=== PATIENT | female | born 1940 | race Caucasian/White ===

== ENCOUNTER 2017-04-28 14:44 | Outpatient (CLI) | payer MEDICARE ==
[2017-04-28 15:17] LABS: #Basophils 0.2 thou/uL (0.0-0.2); #Eosinphils 0.2 thou/uL (0.0-0.7); #Lymphocytes 3.1 thou/uL (1.20-3.40); #Monocytes 0.6 thou/uL (0.11-0.59); #Neutrophils 7.6 thou/uL (1.40-6.50); %Basophils 1.9 % (0.0-1.0); %Eosinophils 1.7 % (0.0-10.0); %Lymphocytes 26.3 % (21.0-51.0); %Monocytes 5.2 % (0.0-10.0); Hematocrit 37.1 % (36.0-47.0); Mean Platelet Volume 6.2 fL (7.4-10.4); Red Blood Cell (RBC) Count 4.77 mill/uL (4.20-5.40); White Blood Cell (WBC) Count 11.7 thou/uL (4.8-10.8)
[2017-04-28 15:20] LABS: Bilirubin Negative (Negative); Blood, Urine Negative (Negative); Glucose, Urine (Dipstick) Negative (Negative); Ketone, Urine Negative (Negative); Nitrite Positive (Negative); Protein, Urine (Dipstick) Negative (Neg-Trace); Urobilinogen 0.2 mg/dL (0.2-1.0)
[2017-04-28 15:21] LABS: ALT (SGPT) 18 U/L (8-55); AST (SGOT) 22 U/L (5-34); Alkaline Phosphatase 83 U/L (40-150); Anion Gap 17 mmol/L (10-20); BUN (Urea Nitrogen) 25 mg/dL (9.8-20.1); Bilirubin, Total 0.5 mg/dL (0.2-1.2); Calc. Creatinine Clearance 0 mL/min (70-130); Calcium 9.9 mg/dL (7.8-10.44); Carbon Dioxide 23 mmol/L (23-31); Chloride 97 mmol/L (98-107); Estimated GFR-MDRD 64
[2017-04-28 15:27] LABS: Bacteria/HPF 4+ HPF (None Seen); RBC/HPF 0-3 HPF (0-3)
--- NOTE | 2017-04-28 15:49 | RAD ---
CHEST TWO VIEWS: History: Recent weight loss. Comparison: None. FINDINGS: Chest two views. Atherosclerosis of the aorta. Normal cardiac silhouette. Pulmonary vessels and hilum are normal. Costophrenic angles are clear. Lungs are hyperinflated. Questionable nodule in the left midlung adjacent to the left heart border. Additional nodule may be present along the medial left cos tophrenic angle. No pneumothorax or osseous abnormality. Old right rib fractures suspected. Old left clavicle fracture is noted. IMPRESSION: 1. Possible left lung nodule. Better interrogation with CT is recommended. 2. Hyperinflation. 3. Atherosclerosis. Code T POS: OFF
== END 2017-04-28 14:45 | disposition home or self-care (01) ==
LOC: SCSRAD 14:44
PROVIDERS: ATTEND Family Medicine
DX: R63.4 Abnormal weight loss (principal); R97.8 Other abnormal tumor markers; I25.10 Atherosclerotic heart disease of native coronary artery without angina pectoris; J98.4 Other disorders of lung
CPT/HCPCS: 36415; 71020; 80053; 81001; 82378; 84443; 85025; 86304

== ENCOUNTER 2017-05-02 12:11 | Outpatient (CLI) | payer MEDICARE ==
--- NOTE | 2017-05-02 16:41 | CT ---
ABDOMEN CT WITH CONTRAST PELVIC CT WITH CONTRAST: History: Abnormal labs. Ovarian cancer. Comparison: None. Technique: An abdomen and pelvic CT are performed with IV and oral contrast. Coronal reformatted imag es are submitted for interpretation. FINDINGS: Abdomen CT: Chronic changes in the lung bases. Normal heart size. No significant pericardial fluid. The descendin g thoracic aorta and abdominal aorta demonstrate atherosclerosis. No periaortic fat stranding. No periportal or retrocrural lymphadenopathy. There is nodularity in the gastrohepatic ligament, worr isome for possible metastases. Gallbladder is contracted. There is evidence of a gallstone. There is a small amount of nonspecific perihepatic and perisplenic fluid. No abnormal enhancing masses in the liver or spleen. Pancreas is unremarkable. Adrenal glands are unremarkable. Symmetric enhancement of the kidneys. No obstructive uropathy, bilat erally. Abnormal soft tissue density in the left upper quadrant mesentery, measuring 2.9 x 7.2 cm, suspicious for omental seeding. There is fluid in the adjacent mesentery. There is gastric mucosal edema, nonspecific. Duodenum and small bowel loops are unremarkable. Ileocec al junction is normal. There is fecal material in a nondistended, nondilated colon. There is left col on diverticulosis. There is an abrupt caliber change in the midsigmoid colon. Colonic neoplasm cannot be excluded. The mid to distal sigmoid colon also have diverticula. Obvious diverticulitis is not ap preciated. Pelvic CT: Uterus and adnexal structures are grossly unremarkable. No obvious large ovarian mass. Urinary bladde r is unremarkable. No pelvic mass, lymphadenopathy, free air or free fluid. No lytic or blastic lesions in the osseous structures. IMPRESSION: 1. Mucosal edema of the stomach. Correlate for gastritis versus gastric neoplasm. 2. Abnormal appearance of the sigmoid colon which may be due to inadequate distention or remote diver ticulitis. A neoplasm cannot be excluded. Colonoscopy is recommended. 3. Omental seeding in the left upper quadrant as well as nodularity to the gastrohepatic ligament, wo rrisome for metastases. 4. [facility] oncology and general surgical consultations are recommended. POS: [facility]
[2017-05-02] MEDS ORDERED: Iopamidol 370 76% 100 ML VIAL ONE (17:06)
== END 2017-05-02 12:12 | disposition home or self-care (01) ==
LOC: CT 12:11
PROVIDERS: ATTEND Family Medicine
DX: R79.9 Abnormal finding of blood chemistry, unspecified (principal); R60.0 Localized edema; Z92.89 Personal history of other medical treatment
CPT/HCPCS: 74177

== ENCOUNTER 2017-06-16 08:26 | Day surgery (SDC) | payer MEDICARE ==
[2017-06-15 11:40] VITALS: BMI 21.2
[2017-06-16] MEDS ORDERED: Lidocaine 2% w/Epinephrine 1:200K 20 ML VIAL ONE (09:49)
[2017-06-16] MEDS ORDERED: Bupivacaine PF 0.5% 30 ML VIAL ONE (09:49)
[2017-06-16] MEDS ORDERED: Levofloxacin 500 mg/D5W 100 ml Premix Bag ONE (09:59)
[2017-06-16] MEDS ORDERED: Fentanyl 100 MCG/2 ML VIAL ONE (09:59)
--- NOTE | 2017-06-16 13:33 | RAD ---
SINGLE VIEW CHEST: Date: 06/16/17 COMPARISON: 04/28/17. HISTORY: Chest pain and shortness of breath. MediPort placement. Evaluate for pneumothorax. FINDINGS: Single view of the chest shows normal sized cardiomediastinal silhouette. There is a right IJ MediPor t with its tip in the superior vena cava. No pneumothorax is seen. There is blunting of the left cost ophrenic angle which may represent a small pleural effusion. IMPRESSION: 1. Status post MediPort placement without evidence of complication. 2. Small left pleural effusion. POS: [facility]
[2017-06-16] MEDS ORDERED: Lidocaine 1% PF 5 ML VIAL ONE (14:28)
[2017-06-16] MEDS ORDERED: PROPOFOL 200 MG/20 ML VIAL ONE (14:28)
--- NOTE | 2017-06-17 12:21 | OP ---
DATE OF PROCEDURE: 06/16/2017 PREOPERATIVE DIAGNOSES: Ovarian cancer and venous insufficiency. POSTOPERATIVE DIAGNOSES: Ovarian cancer and venous insufficiency. PROCEDURE: Tunneled central line subcutaneous port (MediPort), CT injectable. SURGEON: Oscar Mendoza M.D. ANESTHESIA: TIVA, local. ESTIMATED BLOOD LOSS: Minimal. COMPLICATIONS: None. SPECIMEN: None. TECHNIQUE: The patient was taken to the operating room and placed supine on the table. After sedati on was obtained, bilateral neck and chest were prepped and draped in a sterile fashion. Local anesth etic infiltrated over the right internal jugular vein. Intrajugular vein cannulated using a 22-gauge finder needle followed by a Seldinger needle. Wire was passed into the superior vena cava under flu oroscopic guidance. A small sheridan was made at the wire entrance site. A separate 3-cm incision was m aleah in the right upper chest. Subcutaneous pocket made below the lower incision. Tubing for the Med iPort tunneled from the inferior to superior incision. Introducer sheath was placed over the wire in to the superior vena cava under fluoroscopic guidance. The dilator and wire were removed and the end of the catheter was threaded into the sheath as the sheath was peeled away. The tip of the catheter was at the atrial caval junction. MediPort tubing was cut to fit the MediPort at the lower incision and connected to the MediPort. The MediPort sewn to the chest wall in the subcutaneous pocket using Prolene suture. The MediPort flushes and draws blood without difficulty. It is flushed with hepari n flush. The wounds are irrigated and closed using 3-0 Vicryl, 4-0 Monocryl, and Dermabond. The Med iPort was left accessed with the access needle for chemotherapy on the same day. The patient was en route to recovery in stable condition. All instrument counts, needle counts, and lap counts were cor rect.
== END 2017-06-16 11:54 | disposition home or self-care (01) ==
LOC: SDC 08:26
PROVIDERS: ATTEND Surgery
PROC: 02HV33Z Insertion of Infusion Device into Superior Vena Cava, Percutaneous Approach (ICD-10-PCS; principal; 2017-06-16)
DX: C56.9 Malignant neoplasm of unspecified ovary (principal); I10 Essential (primary) hypertension; J43.9 Emphysema, unspecified; F17.210 Nicotine dependence, cigarettes, uncomplicated; F10.11 Alcohol abuse, in remission; K21.9 Gastro-esophageal reflux disease without esophagitis; M19.90 Unspecified osteoarthritis, unspecified site; Z79.899 Other long term (current) drug therapy; Z88.5 Allergy status to narcotic agent; Z88.0 Allergy status to penicillin; Z98.890 Other specified postprocedural states
CPT/HCPCS: 36561; 71045; C1788; J1642; J1956; J2001; J2704; J3010; S0020

== ENCOUNTER 2017-08-10 09:05 | Outpatient (CLI) | payer MEDICARE ==
[2017-08-10] MEDS ORDERED: Iopamidol 370 76% 100 ML VIAL ONE (12:48)
--- NOTE | 2017-08-10 13:27 | CT ---
CT ABDOMEN AND PELVIS WITH IV CONTRAST: INDICATIONS: History of ovarian cancer with omental caking. COMPARISON: 05/02/2017 FINDINGS: Since the comparison examination, the prominent nodularity involving the left upper aspect of the ome ntum has slightly decreased in prominence, now measuring 6.3 x 2.3 x 9.3 cm, where it previously ramana ured 7.2 x 2.9 x 10.2 cm. The nodularity seen within the Cui pouch has also decreased in promin ence. There are persistent and enlarged lymph nodes within the gastrohepatic ligament, measuring 1.2 cm, on image 22 of series 2. The slight nodularity seen along the anterior margin of the pancreatic body, likely related to retroperitoneal studding, is stable. There is a small hiatal hernia. The spleen is normal appearing. The adrenal glands appear within normal limits. No focal renal lesi on is evident. There is prominent calcification involving the abdominal aorta. There is mild free fluid seen within the lower abdomen and pelvis. There is persistent heterogeneity of the uterus. There is slight narrowing of the rectosigmoid junction, which may be related to bull ges of prior therapy or possibly related to stricturing from omental nodularity within the region of the lower sigmoid mesentery. There is a prominent amount of retained stool within the colon. There is no overt evidence of obstruction. There is diffuse osteopenia. No definite acute osseous abnormality is evident. IMPRESSION: 1. Improvement in the carcinomatosis involving the abdomen when compared to prior. 2. There is persistent mild narrowing at the rectosigmoid junction, which may be related to scarring from sequela of prior therapy. Alternatives could be related to an inflammatory tethering of the re ctosigmoid region, in the region of the lower sigmoid mesocolon, from the patient's known carcinomato sis. This is stable to the prior exam. 3. Persistent small left pleural effusion. POS: [facility]
== END 2017-08-10 09:06 | disposition home or self-care (01) ==
LOC: CT 09:05
PROVIDERS: ATTEND Internal Medicine Hematology & Oncology
DX: C48.8 Malignant neoplasm of overlapping sites of retroperitoneum and peritoneum (principal); J90 Pleural effusion, not elsewhere classified
CPT/HCPCS: 74177

== ENCOUNTER 2017-10-16 22:54 | Inpatient (IN) | payer MEDICARE ==
[2017-10-16 23:40] LABS: #Basophils 0.1 thou/uL (0.0-0.2); #Eosinphils 0.2 thou/uL (0.0-0.7); #Lymphocytes 1.9 thou/uL (1.20-3.40); #Monocytes 0.6 thou/uL (0.11-0.59); %Basophils 1.3 % (0.0-1.0); %Eosinophils 2.6 % (0.0-10.0); %Lymphocytes 24.6 % (21.0-51.0); %Monocytes 7.5 % (0.0-10.0); Hemoglobin 12.4 g/dL (12.0-16.0); Mean Corpuscular HGB CONC 33.4 g/dL (32.0-36.0); Mean Corpuscular Hemoglobin 28.9 pg (27.0-31.0); Mean Corpuscular Volume 86.6 fl (81.0-99.0); Mean Platelet Volume 7.6 fL (7.4-10.4); Platelet Count 252 thou/uL (130-400); RBC Distribution Width 13.5 % (11.5-14.5); Red Blood Cell (RBC) Count 4.29 mill/uL (4.20-5.40); White Blood Cell (WBC) Count 7.8 thou/uL (4.8-10.8)
--- NOTE | 2017-10-16 23:54 | CT ---
CT HEAD WITHOUT CONTRAST: INDICATIONS: Mental status change. Dizziness. TECHNIQUE: Multiple axial tomograms obtained through the head without IV contrast. FINDINGS: The ventricles have normal size and position. No evidence of intracranial hemorrhage or mass. No ev idence of acute cortical infarct. There are mild chronic ischemic white matter changes. Mucosal thi ckening in the right sphenoid sinus. The paranasal sinuses are otherwise well aerated. IMPRESSION: No acute process identified. POS: [facility]
[2017-10-17 00:05] LABS: ALT (SGPT) 10 U/L (8-55); AST (SGOT) 14 U/L (5-34); Albumin 3.7 g/dL (3.4-4.8); Alkaline Phosphatase 56 U/L (40-150); Anion Gap 11 mmol/L (10-20); BUN (Urea Nitrogen) 12 mg/dL (9.8-20.1); Bilirubin, Total 0.4 mg/dL (0.2-1.2); CK (CPK) 30 U/L (29-168); Calc. Creatinine Clearance 0 mL/min (70-130); Calcium 9.9 mg/dL (7.8-10.44); Carbon Dioxide 22 mmol/L (23-31); Chloride 103 mmol/L (98-107); Estimated GFR-MDRD 67; Globulin 2.5 g/dL (2.4-3.5); Glucose 204 mg/dL (83-110); Potassium 3.4 mmol/L (3.5-5.1); Protein, Total 6.2 g/dL (6.0-8.3); Sodium 133 mmol/L (136-145)
[2017-10-17 00:07] LABS: CKMB 1.3 ng/mL (0-6.6); Troponin I Less than 0.010 ng/mL (< 0.028)
[2017-10-17 01:19] LABS: Bilirubin Negative (Negative); Blood, Urine Large (Negative); Clarity CLOUDY (Clear); Glucose, Urine (Dipstick) Negative (Negative); Leukocyte Large (Negative); Nitrite Negative (Negative); Protein, Urine (Dipstick) 100 mg/dL (Neg-Trace); Specific Gravity, Urine 1.015 (1.002-1.036); Urobilinogen 0.2 mg/dL (0.2-1.0); pH, Urine 6.5 (5.0-9.0)
[2017-10-17 01:22] LABS: Bacteria/HPF None Seen HPF (None Seen); Hyaline Casts/LPF 4-6 HYALINE CAST LPF (0-3 Hyaline); Pathc Cast-AUWi Flag 0.81 (0-2.49); RBC/HPF GREATER THAN 50-TNTC HPF (0-3); Squamous Epithelial 0-3 HPF (0-3)
[2017-10-17] MEDS ORDERED: Ondansetron ODT 4 MG TAB SL PRN (02:59)
[2017-10-17] MEDS ORDERED: Ondansetron PF 4 MG/2 ML Vial IVP PRN ×2 (02:59→03:05)
[2017-10-17] MEDS ORDERED: Acetaminophen 325 MG TAB PO PRN (02:59)
[2017-10-17] MEDS ORDERED: Ondansetron ODT 4 MG TAB PO PRN (03:05)
[2017-10-17] MEDS ORDERED: cloNIDine 0.1 MG TAB PO PRN (03:05)
[2017-10-17] MEDS ORDERED: hydrALAZINE 20 MG/ML VIAL SLOW IVP PRN (03:05)
[2017-10-17] MEDS ORDERED: Acetaminophen 500 MG TAB PO PRN (03:05)
[2017-10-17] MEDS ORDERED: diphenhydrAMINE 25 MG CAP PO SCH (03:45)
[2017-10-17] MEDS: cefTRIAXone\\ROCEPHIN 1 GM in Sodium Chloride 0.9% 100 ML IVPB SCH (04:24)
[2017-10-17 06:00] LABS: ALT (SGPT) 9 U/L (8-55); AST (SGOT) 10 U/L (5-34); Albumin 3.6 g/dL (3.4-4.8); Alkaline Phosphatase 55 U/L (40-150); Anion Gap 8 mmol/L (10-20); BUN (Urea Nitrogen) 12 mg/dL (9.8-20.1); Bilirubin, Total 0.3 mg/dL (0.2-1.2); Calc. Creatinine Clearance 0 mL/min (70-130); Calcium 9.6 mg/dL (7.8-10.44); Carbon Dioxide 26 mmol/L (23-31); Cardiac Risk 4.1 (Less than 4.5); Chloride 102 mmol/L (98-107); Cholesterol 177 mg/dl (< 200 Desired); Estimated GFR-MDRD 78; Globulin 2.2 g/dL (2.4-3.5); Glucose 145 mg/dL (83-110); HDL Cholesterol 43 mg/dL (>60 Neg Risk); LDL Cholesterol, Calculated 99 mg/dL; Potassium 3.3 mmol/L (3.5-5.1); Protein, Total 5.8 g/dL (6.0-8.3); Sodium 133 mmol/L (136-145); Triglycerides 173 mg/dL (Less than 150)
[2017-10-17 06:02] LABS: Eosinophils 4 % (0-10); Hemoglobin 11.4 g/dL (12.0-16.0); Lymphocytes 16 % (21-51); MDiff Complete? YES; Mean Corpuscular HGB CONC 32.7 g/dL (32.0-36.0); Mean Corpuscular Hemoglobin 28.5 pg (27.0-31.0); Mean Corpuscular Volume 87.1 fl (81.0-99.0); Mean Platelet Volume 7.8 fL (7.4-10.4); Monocytes 13 % (0-10); Neutrophil 66 % (42-75); PLT Morphology Comment Appears Adequate; Platelet Count 246 thou/uL (130-400); RBC Distribution Width 13.4 % (11.5-14.5); White Blood Cell (WBC) Count 7.1 thou/uL (4.8-10.8)
--- NOTE | 2017-10-17 06:41 | HP ---
PRIMARY CARE PHYSICIAN: Dr. Foreign Green CHIEF COMPLAINT: Right arm weakness and difficulty speaking. HISTORY OF PRESENT ILLNESS: This is a 77-year-old female who was at her home on 10/16/2017 when her caregiver noted that she had difficulty saying words and lifting a spoon to eat. The patie nt states she had trouble holding a spoon or forming words that lasted 2-3 minutes. The patient felt weak in her right upper extremity and hand with intermittent dizziness. The patient denied any loss of consciousness and no seizure activity was noted. The patient's symptoms resolved in 2-3 minutes. However, due to concern for possible TIA or stroke, the patient was recommended to seek medical att ention by her caregiver. The patient states her history is significant for ovarian cancer, status po st resection and hysterectomy at [facility] in [place] on 09/12/2017. The patient states she h ad previously been on chemotherapy regimen proceeding to surgical intervention as stated previously. The patient has been followed by Dr. Awan locally for Medical Oncology services. The patient sta nicholas she is slated for a followup appointment on 10/18/2017. In the emergency room, the patient under went general evaluation including CT of the brain showing no acute process. Metabolic screening was essentially unremarkable except for mild hypokalemia. The patient received aspirin 324 mg x1 dose an d was referred to the Hospitalist Service for evaluation. PAST MEDICAL HISTORY: 1. Ovarian carcinoma, status post resection on 09/12/2017. 2. Hypertension. 3. Emphysema. 4. Gastroesophageal reflux disease. 5. History of left wrist fracture. PAST SURGICAL HISTORY: 1. Status post left wrist open reduction internal fixation. 2. Status post right upper chest MediPort placement. CURRENT MEDICATIONS: 1. Omeprazole 20 mg 1 tab p.o. daily. 2. Zofran ODT 8 mg p.o. q.8h. p.r.n. 3. Prednisone 10 mg p.o. daily. 4. Prochlorperazine 10 mg p.o. daily. ALLERGIES: CODEINE and PENICILLIN. FAMILY HISTORY: Father diagnosed with diabetes mellitus, now . Mother is . SOCIAL HISTORY: The patient receives home care with a live-in provider. Remote tobacco use for appr oximately 50 years. History of alcohol abuse remotely, none currently in the last 30 years. No illi cit drug use. Ambulates with use of a rolling walker. REVIEW OF SYSTEMS: The following complete review of systems was negative, unless otherwise mentioned in the HPI or below: Constitutional: Weight loss or gain, ability to conduct usual activities. Skin: Rash, itching. Eyes: Double vision, pain. ENT/Mouth: Nose bleeding, neck stiffness, pain, tenderness. Cardiovascular: Palpitations, dyspnea on exertion, orthopnea. Respiratory: Shortness of breath, wheezing, cough, hemoptysis, fever or night sweats. Gastrointestinal: Poor appetite, abdominal pain, heartburn, nausea, vomiting, constipation, or diarrhea. Genitourinary: Urgency, frequency, dysuria, nocturia. Musculoskeletal: Pain, swelling. Neurologic/Psychiatric: Anxiety, depression. Allergy/Immunologic: Skin rash, bleeding tendency. PHYSICAL EXAMINATION: VITAL SIGNS: On admission, blood pressure 144/79, pulse 90, respiratory rate 16, temperature 97.8 de grees Fahrenheit, O2 saturation 97% on room air. GENERAL APPEARANCE: This is a 77-year-old female, alert and oriented x3, pleasant, convers ant, in no acute distress. HEENT: Pupils are equal, round, and reactive to light and accommodation. Extraocular muscles are in tact. No scleral icterus, no conjunctival injection. Nares patent. OP is clear. Edentulous. NECK: Supple, no cervical adenopathy, no thyromegaly, no carotid bruits, no JVD appreciated. Cervic al spine with full active and passive range of motion. No meningeal signs appreciated. CHEST: Lungs are clear to auscultation bilaterally. CARDIOVASCULAR: S1, S2, without noted murmur, rub, or gallop. ABDOMEN: Flat, soft, nontender, nondistended. Bowel sounds are positive in all 4 quadrants. There is no hepatosplenomegaly, no abdominal bruits, no rebound or guarding appreciated. EXTREMITIES: Warm and dry with fair turgor. No clubbing, cyanosis or asymmetric edema appreciated. Pulses palpable distally at the dorsalis pedis, posterior tibial, and popliteal arteries bilaterally . Capillary refill less than 2 seconds. NEUROLOGIC: Cranial nerves II-XII are grossly intact. No focal or lateralizing signs appreciated. PERTINENT LABORATORY AND X-RAY FINDINGS: Sodium 133, potassium 3.4, chloride 103, CO2 of 22, BUN 12, creatinine 0.83, estimated GFR 67, glucose 204. LFTs within normal limits. Troponin I negative x1. CBC within normal limits. Urinalysis showed large leukocyte esterase with greater than 50 to too n umerous to count RBCs and WBCs per high power field. CT of the brain without contrast dated 10/17/19 18 showed chronic ischemic white matter changes without acute process. EKG dated 10/16/2017 by my in terpretation shows sinus mechanism with heart rates in the 80s. Attenuated R waves noted in the prec ordial leads. Left axis deviation noted. No acute ST-T wave changes appreciated. ASSESSMENT AND PLAN: 1. Transient ischemic attack, suspected given patient's presentation and history. We will obtain MR I imaging of the brain to rule out focal infarct. Check carotid Doppler study to rule out focal sten osis. Continue aspirin 81 mg daily. Check fasting lipid profile. 2. Dysarthria. Suspect secondarily to #1. See #1 above for management. 3. Urinary tract infection. Suspected given the patient's initial urinalysis. Continue Rocephin 1 gram IV q.24 hours, pending final urine culture results. 4. Hypokalemia. Mild. Repeat potassium level in the a.m. The patient may need additional potassium chloride supplementation. 5. Ovarian carcinoma, status post oophorectomy/hysterectomy. Stable currently. Continue general alcantara pportive management. Outpatient Medical Oncology followup. 6. Prophylaxis. Sequential compression devices while in bed. Pepcid 20 mg p.o. b.i.d. PT evaluati on for functional assessment. 7. Code status is full. Surrogate medical decision maker is the patient's son.
[2017-10-17] MEDS ORDERED: Potassium Chloride 20 MEQ TAB PO SCH (07:45)
[2017-10-17 08:00] VITALS: BMI 18.5
[2017-10-17] MEDS ORDERED: Aspirin 325 mg Enteric Coated Tablet PO SCH (09:00)
--- NOTE | 2017-10-17 10:08 | MRI ---
MRI BRAIN WITH AND WITHOUT IV CONTRAST: Date: 10/17/17 HISTORY: TIA, dizziness. FINDINGS: Correlation is made with the previous day's noncontrasted CT scan of the brain. A tiny focus of restricted diffusion is seen in the left periventricular white matter consistent with acute infarction. There are multiple foci of T2 prolongation in the periventricular white matter con sistent with chronic small vessel ischemic disease. There is ventricular sulcal prominence due to cor tical atrophy. The basilar cisterns are patent. No evidence of transcortical infarct, hemorrhage, mas s, midline shift, or abnormal extra-axial fluid collections are seen. No abnormal postcontrast enhanc ement is noted. There is mild mucosal disease in the paranasal sinuses. IMPRESSION: Tiny acute lacunar infarction in the left periventricular white matter. POS: OFF
[2017-10-17] MEDS: Famotidine 20 MG TAB PO SCH ×2 (10:45→21:17)
[2017-10-17] MEDS: Aspirin 81 mg Enteric Coated Tablet PO SCH (10:45)
[2017-10-17] MEDS: Prochlorperazine Maleate 5 MG TAB PO SCH (10:46)
[2017-10-17] MEDS: predniSONE 5 MG TAB PO SCH (10:46)
[2017-10-17] MEDS ORDERED: Zolpidem Tartrate 5 MG TAB PO PRN (12:43)
[2017-10-17] MEDS: traMADol HCl 50 MG TAB PO PRN ×2 (13:49→18:22)
--- NOTE | 2017-10-17 13:52 | ULT ---
CAROTID ARTERIAL DOPPLER ULTRASOUND: DATE: 10/17/17. COMPARISON: None. HISTORY: Transient ischemic attack. TECHNIQUE: Multiplanar, yancey scale, sonographic imaging of the arterial structures of the neck obtained with col or flow and spectral analysis. FINDINGS: There is shadowing from atherosclerotic plaque which limits detailed assessment of the proximal ICA b ilaterally. Antegrade blood flow is documented within the carotid and vertebral system bilaterally. VESSEL PSV(CM/S) EDV(CM/S) Right CCA 60 14 Right ICA 60 20 Right ECA 84 10 Left CCA 71 13 Left ICA 106 31 Left ECA 46 6 ICA/CCA ratio is 1.0 on the right and 1.5 on the left. IMPRESSION: There is no hemodynamically significant stenosis on the basis of sonographic velocity criteria. Harley yesenia, calcified plaque at the proximal internal carotid artery limits detailed assessment bilaterally. Thus, CT angiogram of the neck is advised for full assessment. POS: [facility]
[2017-10-17] MEDS ORDERED: Gadobenate Dimeglumine 529 MG/1 ML (20ML VIAL) ONE (14:58)
[2017-10-18] MEDS: cefTRIAXone\\ROCEPHIN 1 GM in Sodium Chloride 0.9% 100 ML IVPB SCH (05:25)
[2017-10-18] MEDS: Prochlorperazine Maleate 5 MG TAB PO SCH (09:12)
[2017-10-18] MEDS: predniSONE 5 MG TAB PO SCH (09:12)
[2017-10-18] MEDS: Aspirin 81 mg Enteric Coated Tablet PO SCH (09:13)
[2017-10-18] MEDS: traMADol HCl 50 MG TAB PO PRN (09:13)
[2017-10-18] MEDS: Famotidine 20 MG TAB PO SCH (09:14)
[2017-10-18] MEDS ORDERED: Lisinopril 5 MG TAB PO SCH ×2 (12:45→21:00)
[2017-10-18] MEDS ORDERED: Amlodipine 10 MG TAB PO SCH (12:45)
[2017-10-18] MEDS ORDERED: Iopamidol 370 76% 100 ML VIAL ONE (15:09)
[2017-10-18 15:48] VITALS: BP 154/91; TEMP 98.4
[2017-10-18] MEDS ORDERED: ALPRAZolam 0.5 MG TAB PO PRN (16:20)
--- NOTE | 2017-10-18 16:58 | CT ---
CT ANGIO NECK: INDICATIONS: Abnormal carotid Doppler. TIA. Recent carotid Doppler demonstrated calcified plaque in the proximal internal carotid arteries, which limited the Doppler evaluation. TECHNIQUE: Multiple axial tomograms obtained through the neck with IV enhancement, following angio protocol, wit h multiplanar reconstruction and 3D post processing. FINDINGS: No evidence of stenosis seen at the origin of the arch vessels. The right common carotid artery is unremarkable. There is calcified plaque in the right bulb and proximal right ICA. This does result in mild stenosi s at the proximal right ICA: however, the degree of stenosis does not appear hemodynamically signific ant, estimated in the 20% diameter range, according to NASCET criteria. ICA above this area is unrem arkable on the right. The left common carotid is unremarkable. There is calcified plaque at the left bulb and proximal left ICA. This does result in mild to modera te stenosis at the origin of the right ICA. The degree of stenosis by NASCET criteria is approximate ly 25% to 30% when compared to the more distal ICA lumen. The vertebral arteries are patent and symmetric. There is atherosclerotic calcification at the origi n of the right vertebral artery, which does appear to produce moderate stenosis. Low density nodules seen in both lobes of the thyroid. The lung apices appear clear. Degenerative c hanges in the cervical spine with posterior spondylitic changes encroaching into the spinal canal. F oraminal stenosis apparent. IMPRESSION: Atherosclerotic calcification at both carotid bulbs and at the proximal internal carotid arteries; ho wever, no evidence of hemodynamically significant stenosis identified by NASCET criteria, as discusse d above. POS: [facility]
--- NOTE | 2017-10-18 21:14 | CON ---
DATE OF CONSULTATION: 10/17/2017 REFERRING PHYSICIAN: Emilie Reyna MD REASON FOR CONSULTATION: TIA. HISTORY OF PRESENT ILLNESS: Ms. Hong is a pleasant 77-year-old female who has been consulted for evaluation of a TIA. The patient reports that she was at home and had a sudden onset of difficulty with saying words and lifting her spoon to eat, this lasted for approximately 3 minutes and then resolved. Due to this reason, she was brought to the [place] [facility]. Since being admitted to the hospital, she has not had any recurrence of episodes. She currently denies any headache, chest pain, palpitation, numbness , tingling, weakness, dysarthria, dysphagia or difficulty with balance. PAST MEDICAL HISTORY: Significant for ovarian cancer, hypertension, emphysema, GERD, left wrist fracture. PAST SURGICAL HISTORY: Significant for left wrist surgery, right upper chest MediPort placement and ovarian cancer resection. SOCIAL HISTORY: She denies smoking, alcohol use, or illicit drug use. FAMILY HISTORY: Noncontributory. CURRENT MEDICATIONS: Please review MAR. ALLERGIES: Include PENICILLIN AND CODEINE. REVIEW OF SYSTEMS: As mentioned, otherwise negative. PHYSICAL EXAMINATION: VITAL SIGNS: Blood pressure of 179/109, pulse of 93, temperature 98.5, respirations 20, O2 sats of 96% on room air. GENERAL: Well-developed, well-nourished female in no apparent distress. RESPIRATORY: Clear to auscultation bilaterally. CARDIOVASCULAR: Regular rate and rhythm. NEUROLOGIC: Mental status: The patient is awake, alert, oriented x3. Speech and language: Fluent speech. Cranial nerves: Pupils are 3 mm and reactive. Visual zamarripa are intact. External muscles are intact. No nystagmus noted. Face is symmetric. Tongue and uvula midline. Motor exam showed normal tone and bulk with 5/5 strength in both upper and lower extremities. Sensory: Sensation is intact and symmetric. Deep tendon reflexes 2+ reflexes in both upper and lower extremities. Babinski: Plantar responses flexion bilaterally. Coordination intact to [id number] and finger tapping bilaterally. LABORATORY DATA: Reviewed, which included CBC, CMP, lipid profile, and urinalysis, which is significant for hemoglobin 11.4, hematocrit 34.8. Sodium 133, potassium 3.3, total cholesterol 177, LDL of 99, HDL of 43 and triglycerides of 173. Urinalysis showed large leukocyte esterase, greater than 50 to too numerous to count wbc's, otherwise unremarkable. IMAGING STUDIES: MRI of the brain without contrast was reviewed, which showed small subacute lacunar infarction in the left periventricular white matter region. Carotid Doppler results were reviewed, which showed calcified plaque on both sides of the carotid arteries. IMPRESSION: 1. Lacunar Infarct. 2. Calcified plaque at the carotid artery. 3. Malignant hypertension. PLAN: Ms. Hong is a pleasant 77-year-old female who presented with the transient episode of expressive aphasia and weakness. This is now resolved. Her MRI brain does show small [id number] left lacunar infarct. Based on the location, this is likely secondary to poorly controlled blood pressure. I have reviewed her carotid Doppler results and it showed calcified plaque at the internal carotid artery for which I would recommend obtaining CT angiogram of the neck. I would recommend starting her on aspirin 81 mg daily for secondary stroke prevention as well as statin for secondary stroke prevention. If her CT angiogram results is normal, then she is okay to be discharged to home with followup with her primary care physician. Thank you for consultation. MICK
[2017-10-19] MEDS ORDERED: Amlodipine 10 MG TAB PO SCH (09:00)
[2017-10-19] MEDS ORDERED: Fenofibrate 48 MG TAB PO SCH (09:00)
--- NOTE | 2017-10-19 13:53 | DIS ---
DATE OF ADMISSION: 10/17/2017 DATE OF DISCHARGE: 10/18/2017 DISCHARGE DIAGNOSES: As of the followin. Lacunar infarct. 2. Calcified plaque in the carotid artery. 3. Malignant hypertension. HOSPITAL COURSE: The patient is a very pleasant 77-year-old female who presented to the hospital wit h transient episodes of expressive aphasia and weakness, which was resolved. The patient underwent b rain MRI that indicated a small acute to subacute left lacunar infarct. Based on the location, she w as seen by Neurology and her stroke was secondary to blood pressure control. The patient did have ca rotid Dopplers which showed calcified plaque in the internal carotid artery for which he recommended a CT angiogram of the neck. We did do a CT angiogram of the neck, which indicated atherosclerotic ca lcification in both carotid bulbs at the proximal internal carotid artery; however, no evidence of he modynamically significant stenosis identified by the criteria. Patient was asked to follow up with linus santos for further evaluation. However, currently she was discharged home. She did have an echocard iogram which indicated an EF of 55%-60%, mild mitral regurgitation and mild tricuspid regurgitation. Her home medications were as of the following; atorvastatin 10 mg daily, prednisone 10 mg daily. She is on omeprazole 20 mg daily, lisinopril 20 mg b.i.d., aspirin 325 daily, Norvasc 10 mg daily, Norva sc and lisinopril were new medications. She was also on TriCor 48 mg daily. Again, she will be discharged home. Follow up with PCP and Neurology as needed; however, especially PCP for the carotid findings. PHYSICAL EXAMINATION: VITAL SIGNS: As following 98.4, heart rate 95, blood pressure 154/91. GENERAL: She is awake, alert, oriented x3, does not appear in distress. CARDIOVASCULAR: S1, S2 present. No murmurs, rubs or gallops. ABDOMEN: Soft, nontender. Bowel sounds are present x2. EXTREMITIES: No edema.
--- NOTE | 2017-10-20 14:07 | PQF ---
CITLALI MARSH VALDO [id number] CLINICAL DOCUMENTATION CLARIFICATION FORM: POST DISCHARGE Addendum to original discharge summary date: ____ Late entry note date: __ Please direct query to discharging physician Dr. Reyna. Thank you. DATE: 10/20/2017 ATTN: Dr. Valdo Felipe Please exercise your independent, professional judgment in responding to the clarification form. Clinical indicators are provided on the bottom of this form for your review Please clarify diagnosis of TIA or Infarct. HP: Right arm weakness and dysarthria with possible TIA Consult: Dr. Godfrey-MRI shows small acute to subacute left lacunar infarct MRI results: Tiny acute lacunar infarction in the left periventricular white matter. Carotid Doppler: plaque in bilateral ICA. Weakness, dysarthria, aphasia all resolved before discharge Discharge summary not available at time of coding. Please check appropriate box(s): TIA TYPE: [ ] TIA Stenosis / Syndrome related to: [ ] Vertebro-Basilar Artery [ ] Carotid Artery [ ] Multiple / Bilateral Pre-Cerebral Artery [ ] Cerebral / Pre-cerebral occlusion / stenosis [ ] Small vessel disease of the brain / cerebral vascular disease [ ] Transient Global amnesia [ ] Amaurosis Fugax [ ] Other TIA [ ] Other diagnosis [ ] Unable to determine In addition, please specify: Present on Admission (POA): [ ] Yes [ ] No [ ] Unable to determine For continuity of documentation, please document condition throughout progress notes and discharge summary. Thank You. CLINICAL INDICATORS - SIGNS / SYMPTOMS / LABS Neurological symptoms last < 24 hours Aphasia / dysarthria Changes in mental status Changes in motor strength (plegia, paresis) Dysphagia Impaired vision (blurred, photophobia) Ultrasound / Doppler results CT / MRI results Arteriogram Bruit RISK FACTORS Artherosclerosis / carotid stenosis MTDD
--- NOTE | 2017-10-20 14:09 | PQF ---
CITLALI MARSH CHARLES DO [id number] CLINICAL DOCUMENTATION CLARIFICATION FORM: POST DISCHARGE Addendum to original discharge summary date: ____ Late entry note date: __ Please direct query to discharging physician Dr. Reyna. Thank you. DATE: 10/20/2017 ATTN: Dr. Valdo Felipe Please exercise your independent, professional judgment in responding to the clarification form. Clinical indicators are provided on the bottom of this form for your review Please clarify diagnosis of UTI HP: possible UTI with Rocephin treatment Urine culture on 10/17 was positive for Beta-hemolytic streptococcus Discharge summary not available at time of discharge Please check appropriate box(s): [ ] UTI please specify if due to or related to (as applicable): [ ] Indwelling catheter [ ] Self-catheterization [ ] Suprapubic catheter [ ] Unable to determine etiology UTI Site: [ ] Kidney [ ] Ureter [ ] Bladder [ ] Urethra [ ] Unable to determine Specify Organism (if known): [ ] Unknown organism [ ] Contaminated urine specimen without UTI [ ] Other diagnosis [ ] Unable to determine In addition, please specify: Present on Admission (POA): [ ] Yes [ ] No [ ] Unable to determine For continuity of documentation, please document condition throughout progress notes and discharge summary. Thank You. CLINICAL INDICATORS - SIGNS / SYMPTOMS / LABS Positive urinalysis Hematuria Fever Documentation: UTI RISK FACTORS History of neurogenic bladder History self-cath/indwelling catheter Immunocompromised Debility / intermediate resident TREATMENT: Antibiotics MTDD
--- NOTE | 2017-11-26 17:32 | EKG ---
Test Reason : Blood Pressure : / mmHG Vent. Rate : 080 BPM Atrial Rate : 080 BPM P-R Int : 000 ms QRS Dur : 084 ms QT Int : 392 ms P-R-T Axes : 039 -16 104 degrees QTc Int : 452 ms Normal sinus rhythm Left ventricular hypertrophy with repolarization abnormality Cannot rule out Septal infarct , age undetermined Left axis deviation Abnormal ECG Confirmed by CANDICE BARNES MD ([id number]), editorial project manager JAMES CHILDERS ([id number]) on 11/26/2017 5:31:48 PM Referred By: Confirmed By:CANDICE BARNES MD
== END 2017-10-18 18:01 | disposition home or self-care (01) | DRG 65 ==
LOC: ERS 22:54 → 2SE 10-17 00:17 → OBSVTOIN 10-17 12:42
PROVIDERS: ADMIT Family Medicine; ATTEND Family Medicine
DX: I63.9 Cerebral infarction, unspecified (principal); N39.0 Urinary tract infection, site not specified; R47.01 Aphasia; G83.21 Monoplegia of upper limb affecting right dominant side; Z85.43 Personal history of malignant neoplasm of ovary; Z92.21 Personal history of antineoplastic chemotherapy; E87.6 Hypokalemia; I10 Essential (primary) hypertension; K21.9 Gastro-esophageal reflux disease without esophagitis; J43.9 Emphysema, unspecified; Z88.5 Allergy status to narcotic agent; Z88.0 Allergy status to penicillin; Z87.891 Personal history of nicotine dependence; R47.1 Dysarthria and anarthria; B95.5 Unspecified streptococcus as the cause of diseases classified elsewhere; I65.23 Occlusion and stenosis of bilateral carotid arteries
CPT/HCPCS: 36415; 70450; 70498; 70553; 80053; 80061; 81003; 81015; 82550; 82553; 84484; 85007; 85025; 85027; 87040; 87086; 93005; 93306; 93880; A9579; G8978-GP-CK; G8979-GP-CK; G8980-GP-CK; G8987-GO-CJ; G8988-GO-CJ; G8989-GO-CJ; G9162-GN-CH; G9163-GN-CH; J0360; J0696; J7050; Q0164

== ENCOUNTER 2017-11-03 10:19 | Outpatient (CLI) | payer MEDICARE ==
--- NOTE | 2017-11-03 16:05 | NM ---
LASIX RENOGRAM 11/03/17 HISTORY: Unspecified injury of ureter. Subsequent encounter. RADIOPHARMACEUTICAL: 75 millicuries technetium 99m MAG3, IV. MEDICATIONS: 25 mg of Lasix, IV administered 15 minutes prior to imaging. FINDINGS: There is overall symmetric uptake of radiotracer by the kidneys bilaterally. Time of max activity on the left is 5.4 minutes and on the right is 4.4 minutes. The percent uptake on the left is 10.4% and on the right is 9.782%. The split renal function is 51.4% on the left and 48.8% on the right. There i s overall symmetric washout of radiotracer from the kidneys based on the renogram curves. IMPRESSION: 1. No evidence of a high grade obstruction. 2. Split renal function is 51.4% on the left and 48.8% on the right. POS: [facility]
== END 2017-11-03 10:20 | disposition home or self-care (01) ==
LOC: NM 10:19
PROVIDERS: ATTEND Urology
DX: S37.10XD Unspecified injury of ureter, subsequent encounter (principal)
CPT/HCPCS: 78708; 80053; 82248; 83615; 84100; 84550; 86304; A4641; A9562

== ENCOUNTER 2018-03-09 03:20 | Emergency (ER) | payer MEDICARE ==
[2018-03-09] MEDS ORDERED: Ondansetron ODT 8 MG TAB ONE (04:38)
[2018-03-09 04:42] LABS: #Basophils 0.1 thou/uL (0.0-0.2); #Eosinphils 0.1 thou/uL (0.0-0.7); #Lymphocytes 1.2 thou/uL (1.20-3.40); #Monocytes 0.6 thou/uL (0.11-0.59); #Neutrophils 3.2 thou/uL (1.40-6.50); %Basophils 1.4 % (0.0-1.0); %Eosinophils 2.5 % (0.0-10.0); %Lymphocytes 23.3 % (21.0-51.0); %Monocytes 11.9 % (0.0-10.0); %Neutrophils 60.9 % (42.0-75.0); Hemoglobin 9.4 g/dL (12.0-16.0); Mean Corpuscular HGB CONC 32.8 g/dL (32.0-36.0); Mean Corpuscular Hemoglobin 29.9 pg (27.0-31.0); Mean Corpuscular Volume 91.1 fL (78.0-98.0); Mean Platelet Volume 7.4 fL (7.4-10.4); Platelet Count 297 thou/uL (130-400); RBC Distribution Width 15.3 % (11.5-14.5); Red Blood Cell (RBC) Count 3.15 mill/uL (4.20-5.40); White Blood Cell (WBC) Count 5.2 thou/uL (4.8-10.8)
[2018-03-09 04:55] LABS: ALT (SGPT) 17 U/L (8-55); AST (SGOT) 16 U/L (5-34); Albumin 3.7 g/dL (3.4-4.8); Alkaline Phosphatase 56 U/L (40-150); Anion Gap 12 mmol/L (10-20); BUN (Urea Nitrogen) 15 mg/dL (9.8-20.1); Bilirubin, Total 0.3 mg/dL (0.2-1.2); CK (CPK) 69 U/L (29-168); Calc. Creatinine Clearance 0 mL/min (70-130); Carbon Dioxide 22 mmol/L (23-31); Chloride 105 mmol/L (98-107); Estimated GFR-MDRD 83; Globulin 2.4 g/dL (2.4-3.5); Glucose 129 mg/dL (83-110); Potassium 3.5 mmol/L (3.5-5.1); Protein, Total 6.1 g/dL (6.0-8.3); Sodium 135 mmol/L (136-145)
[2018-03-09 04:59] LABS: CKMB 2.9 ng/mL (0-6.6); Troponin I Less than 0.010 ng/mL (< 0.028)
--- NOTE | 2018-03-09 09:54 | RAD ---
RIGHT KNEE 4 VIEWS: Date: 03/09/18 PROVIDED CLINICAL HISTORY: Right knee pain. FINDINGS: There is no evidence for fracture or other acute osseous abnormality. Prominent patellofemoral joint space narrowing and chondrocalcinosis are noted. No evidence for knee joint capsular distention. Alig nment appears anatomic. Joint spaces appear otherwise preserved. IMPRESSION: 1. No evidence for an acute osseous abnormality. 2. 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 POS: [facility]
--- NOTE | 2018-03-09 10:43 | CT ---
PRELIMINARY REPORT/[facility]/EMERGENTY AFTER-HOURS PROCEDURE CT Head Without Intravenous Contrast EXAM DATE/TIME: 03/09/2018 4:34 AM CLINICAL HISTORY: 78 years old, female; Signs and symptoms and condition or disease; Cancer; History of cancer (specify primary cancer site): ; Dizziness and walking, difficulty and weakness, extremity; Bilateral; Patien t HX: Additional history obtained from ems, f76 reports to ed via ems C/O weakness. PT reports woke up at 0000 today to use the restroom and "her legs gave out. " ems reports assisted enid ent to the bed when her legs gave out again. PT is currently undergoing chemo therapy and last and fi nal treatment was x10 days ago. PT reports has had weakness before in the legs but not as bad as it was tonight. PT denies nausea, vomiting, fever or cough. TECHNIQUE: Axial computed tomography images of the head/brain without intravenous contrast. COMPARISON: No relevant prior studies available. FINDINGS: Brain: There is nonspecific bilateral white matter hypoattenuation probably representing moderate chr onic microvascular ischemic change. Ventricles: Normal. No ventriculomegaly. Bones/joints: Normal. No acute fracture. Sinuses: Normal as visualized. No acute sinusitis. Mastoid air cells: Normal as visualized. No mastoid effusion. Soft tissues: Normal. IMPRESSION: No acute intracranial hemorrhage. Nonspecific white matter hypoattenuation probably representing moderate chronic microvascular ischemi c change. Correlation with prior imaging if available is advised. Thank you for allowing us to participate in the care of your patient. Dictated and Authenticated by: Joe Mims MD 03/09/2018 5:01 AM Central Time ([place] & [place]) FINAL REPORT EMERGENCY AFTER HOURS CT BRAIN: Date: 03/09/18 IMPRESSION: I agree with the preliminary interpretation given by Ricarda. No evidence for intracranial hemorrhage or mass effect. POS: [facility]
--- NOTE | 2018-03-11 11:36 | EKG ---
Test Reason : WEAKNESS Blood Pressure : / mmHG Vent. Rate : 097 BPM Atrial Rate : 097 BPM P-R Int : 148 ms QRS Dur : 092 ms QT Int : 332 ms P-R-T Axes : 048 -13 114 degrees QTc Int : 421 ms Normal sinus rhythm Left ventricular hypertrophy with repolarization abnormality Abnormal ECG Confirmed by JOHNATHAN TOLENTINO DO ([id number]), editor department SHAWNA DEL CASTILLO ([id number]) on 03/11/2018 11:35:50 AM Referred By: RANDA Confirmed By:JOHNATHAN TOLENTINO DO
== END 2018-03-09 09:16 | disposition home or self-care (01) ==
LOC: ERS 03:20
DX: R53.1 Weakness (principal); K21.9 Gastro-esophageal reflux disease without esophagitis; Z86.73 Personal history of transient ischemic attack (TIA), and cerebral infarction without residual deficits; Z87.891 Personal history of nicotine dependence; Z79.899 Other long term (current) drug therapy; Z79.82 Long term (current) use of aspirin
CPT/HCPCS: 70450; 80053; 82553; 84484; 85025; 93005; 96360

== ENCOUNTER 2018-04-12 09:45 | Outpatient (CLI) | payer MEDICARE ==
--- NOTE | 2018-04-12 13:57 | CT ---
CT ABDOMEN AND PELVIS WITH IV CONTRAST: Technique: Multiple axial tomograms were obtained through the abdomen and pelvis with IV contrast. Or al contrast was given. Indications: Follow up ovarian cancer. Malignant neoplasm of retroperitoneum and peritoneum. Comparison: 08-10-17, 05-02-17 FINDINGS: Images through the lung bases are clear. Chronic lung parenchymal change is noted. The liver, spleen, and pancreas are unremarkable. There is mural thickening and/or mural edema involv ing gastric wall in the region of the fundus and antrum. This may be exacerbated by poor distension o f the stomach. Similar findings were noted previously. Adrenal glands and kidneys unremarkable. Small bowel loops show nonspecific distention. Patient's post distal left colectomy with a left colos gregg. There is a rectal pouch. The omental caking noted in the left upper abdomen on the prior exam is much less pronounced today. T here is some residual omental and/or peritoneal thickening measuring approximately 5 cm AP dimension by approximately 1 cm width in the axial plane in this region today. Adenopathy previously described in the gastrohepatic region is less pronounced today measuring 7 mm i n the coronal plane whereas it previously measured approximately 1.5 cm in the coronal plane. Images through the pelvis shows nondistended urinary bladder. There is a rectal pouch which shows gretel dence of mural thickening and mural edema. There appears to be some residual stool within this rectal pouch. On today's exam there is abnormal density in the right psoas muscle with an area of mixed attenuation in the psoas measuring 3 cm. There is abnormal density extending from the lateral margin of the psoa s along the posterior right retroperitoneum which is new. This retroperitoneal mass density extending from the lateral right of the right psoas is well circumscribed. Findings may represent hematoma alt aaron a new metastatic lesion of the psoas is not excluded. IMPRESSION: 1. There is new density involving the right psoas muscle with extension along the lateral margin of t he right psoas muscle into the posterior right peritoneum as described above. Psoas hematoma is a con sideration. Neoplasm is not excluded. Continued follow up recommended. 2. Omental caging in the left upper anterior abdominal wall is less pronounced today and the adenopat hy in the gastrohepatic liver region is less pronounced. Questionable mural thickening in the region of the gastric antrum is again noted as described above. 3. Mural thickening and edema of rectual pouch with residual stool. Findings discussed with Dr. Mcclelland. POS: [facility]
[2018-04-12] MEDS ORDERED: Iopamidol 370 76% 100 ML VIAL ONE (16:45)
== END 2018-04-12 09:46 | disposition home or self-care (01) ==
LOC: CT 09:45
PROVIDERS: ATTEND Internal Medicine Hematology & Oncology
DX: C48.8 Malignant neoplasm of overlapping sites of retroperitoneum and peritoneum (principal); R59.0 Localized enlarged lymph nodes; K62.89 Other specified diseases of anus and rectum
CPT/HCPCS: 74177

== ENCOUNTER 2018-10-11 08:54 | Outpatient (CLI) | payer MEDICARE ==
[2018-10-11] MEDS ORDERED: Iopamidol 370 76% 100 ML VIAL ONE (11:24)
--- NOTE | 2018-10-11 11:25 | CT ---
EXAM: CT ABDOMEN AND PELVIS HISTORY: Malignant neoplasm of overlapping sites, involving the retroperitoneum and peritoneum. Ovari an cancer. COMPARISON: 04/12/2018, 08/10/2017. Procedure: Multiple contiguous axial images were obtained and a CT of the abdomen and pelvis with IV contrast. C oronal reformats were performed. FINDINGS: Lower Chest: Interval development of a small right and moderate left-sided pleural effusion. The left -sided pleural effusion may be slightly complex. Vessels: Normal caliber aorta with atherosclerosis. Heart: Coronary artery calcifications and calcification of mitral annulus is noted. Abdomen: Portal vein:Patent Gallbladder: Increased density in the gallbladder fundus may represent a 4 mm gallstone. Additional s maller gallstones are suspected near the neck of the gallbladder. No evidence of cholecystitis. Liver: within normal limits. Pancreas: within normal limits. Spleen: within normal limits. Adrenals: within normal limits. Kidneys: Symmetric enhancement. No obstructive uropathy. Peritoneum: Trace amount of fluid in the left and right paracolic gutters. No free air. There is a lo culated fluid collection near the left lower quadrant ostomy site. This fluid collection measures 5.7 x 2.6 cm and has developed since the previous exam. There is redemonstration of probable mesenter ic seeding in the anterior left lower quadrant. The overall degree of thickness of the mesentery has increased. Currently, this abnormal thickness measures 8.1 x 1.8 cm. Previously, this area measur ed 4.9 x 1.1 cm. Bowel: Small hiatal hernia is redemonstrated. Multiple normal caliber small bowel loops are identifie d. Ileocecal junction appears to be normal. Appendix is difficult to appreciate. Redemonstration of a left-sided colostomy. There is bowel wall thickening involving the distal colon, just proximal to t he ostomy site. There is also significant bowel wall thickening of the colon at the level of the ostomy. Bowel wall thickening has developed since the previous examination. There is associated perip heral mesenteric fluid/edema. Mesentery and Retroperitoneum: Gastrohepatic lymphadenopathy is demonstrated. Enlarged gastrohepatic lymph node measures 1.2 x 0.8 cm. No retrocrural lymphadenopathy. There is abnormal attenuation in the periportal region which may represent lymph nodes which are difficult to discern and separate, th erefore limiting evaluation in terms of measurement. Abdominal Wall: Redemonstration of a left lower quadrant ostomy. There is fluid tracking along the co ilya to the level of the ostomy. Pelvis: Reproductive Organs: Findings compatible with previous hysterectomy Pelvis: No obvious masses or lymphadenopathy. Small amount of fluid in the pelvis is noted. Bladder: Decompressed, limiting evaluation. Bones: Interval development of a compression deformity at the T12 level. Fracture lucency is still pr esent. Components of sclerosis are identified. Indeterminate fracture is noted. Based on images, it is difficult to determine if this is a pathologic or osteoporotic fracture. Old healed left rib fract ures are noted. IMPRESSION: 1. Interval development of bilateral pleural effusions as described above. There may be a small locu lated component and left-sided pleural fluid. 2. Increase in omental thickening, presumed to be omental metastases in the left hemiabdomen as desc ribed above. 3. Mural thickening with adjacent edema and stranding of the mesentery, along with fluid involving t he colostomy as well as the bowel just proximal to the colostomy exiting through the abdominal cavity. Additional mucosal thickening involving the left hemicolon is noted. Correlate for infectious , inflammatory or possible neoplastic process. 4. Redemonstration of gastrohepatic lymphadenopathy. 5. Cholelithiasis without evidence of cholecystitis. 6. Interval resolution of previously noted complex mass in the right psoas muscle. 7. Indeterminate compression fracture at T12. Based on images provided, it cannot be assessed wheth er this is a pathologic or osteoporotic fracture. Transcribed Date/Time: 10/11/2018 1:18 PM
== END 2018-10-11 08:55 | disposition home or self-care (01) ==
LOC: CT 08:54
PROVIDERS: ATTEND Internal Medicine Hematology & Oncology
DX: C48.8 Malignant neoplasm of overlapping sites of retroperitoneum and peritoneum (principal); J90 Pleural effusion, not elsewhere classified; K66.8 Other specified disorders of peritoneum; R60.0 Localized edema; K80.20 Calculus of gallbladder without cholecystitis without obstruction; M62.89 Other specified disorders of muscle
CPT/HCPCS: 74177; Q9967

== ENCOUNTER 2018-11-06 11:27 | Day surgery (SDC) | payer MEDICARE ==
[~2018-11-06 11:27] MED LIST: BEVACIZUMAB IVPB SCH; Bevacizumab 350 MG in Sodium Chloride 0.9% 86 ML IVPB SCH; CARBOplatin 300 MG in Sodium Chloride 0.9% 250 ML 250 ML IVPB SCH; Dexamethasone 10 MG in Sodium Chloride 0.9% 50 ML IVPB SCH; GEMCITABINE HCL IVPB SCH; GEMZAR IVPB SCH; Palonosetron HCl 0.25 MG in Sodium Chloride 0.9% 50 ML IVPB SCH; SODIUM CHLORIDE 0.9% IVPB SCH
[2018-11-06 13:10] VITALS: BP 129/59; TEMP 98.6
[2018-11-06] MEDS ORDERED: Sodium Chloride 0.9% 20 ML ONE (16:19)
== END 2018-11-06 16:31 ==
LOC: ONC/OP 11:27
PROVIDERS: ATTEND Internal Medicine Hematology & Oncology
DX: Z51.11 Encounter for antineoplastic chemotherapy (principal); C48.8 Malignant neoplasm of overlapping sites of retroperitoneum and peritoneum; R97.1 Elevated cancer antigen 125 [CA 125]; Z88.0 Allergy status to penicillin; Z88.5 Allergy status to narcotic agent
CPT/HCPCS: 36415; 80053; 82248; 83615; 84100; 84550; 96375; 96413; 96417; J1100; J1642; J2469; J3490; J7050; J9035; J9045; J9201

== ENCOUNTER 2018-11-13 11:35 | Day surgery (SDC) | payer MEDICARE ==
[~2018-11-13 11:35] MED LIST changes: -BEVACIZUMAB IVPB SCH; -Bevacizumab 350 MG in Sodium Chloride 0.9% 86 ML IVPB SCH; -CARBOplatin 300 MG in Sodium Chloride 0.9% 250 ML 250 ML IVPB SCH; -Dexamethasone 10 MG in Sodium Chloride 0.9% 50 ML IVPB SCH; -GEMZAR IVPB SCH
[2018-11-13] MEDS ORDERED: Sodium Chloride 0.9% 20 ML ONE (11:49)
[2018-11-13] MEDS ORDERED: SODIUM CHLORIDE 0.9% IVPB SCH (12:30)
[2018-11-13] MEDS ORDERED: GEMCITABINE HCL IVPB SCH (12:30)
[2018-11-13 12:58] VITALS: BP 104/58; TEMP 98.9
== END 2018-11-13 14:45 ==
LOC: ONC/OP 11:35
PROVIDERS: ATTEND Internal Medicine Hematology & Oncology
DX: Z51.11 Encounter for antineoplastic chemotherapy (principal); C48.8 Malignant neoplasm of overlapping sites of retroperitoneum and peritoneum; R97.1 Elevated cancer antigen 125 [CA 125]; Z88.0 Allergy status to penicillin; Z88.5 Allergy status to narcotic agent
CPT/HCPCS: 96375; 96413; J1100; J1642; J2469; J7050; J9201

== ENCOUNTER 2018-11-27 09:33 | Day surgery (SDC) | payer MEDICARE ==
[~2018-11-27 09:33] MED LIST changes: +Bevacizumab 350 MG in Sodium Chloride 0.9% 86 ML IVPB SCH; +CARBOplatin 300 MG in Sodium Chloride 0.9% 250 ML 250 ML IVPB SCH; +Dexamethasone 10 MG in Sodium Chloride 0.9% 50 ML IVPB SCH
[2018-11-27] MEDS ORDERED: Sodium Chloride 0.9% 20 ML ONE (10:02)
[2018-11-27 10:54] VITALS: BP 128/58; TEMP 98.7
[2018-11-27] MEDS ORDERED: Potassium Chloride 10 MEQ in Sodium Chloride 0.9% 250 ML 250 ML IVPB SCH (14:30)
== END 2018-11-27 16:39 | disposition home or self-care (01) ==
LOC: ONC/OP 09:33
PROVIDERS: ATTEND Internal Medicine Hematology & Oncology
DX: Z51.11 Encounter for antineoplastic chemotherapy (principal); C48.8 Malignant neoplasm of overlapping sites of retroperitoneum and peritoneum; R97.1 Elevated cancer antigen 125 [CA 125]; Z88.5 Allergy status to narcotic agent; Z88.0 Allergy status to penicillin
CPT/HCPCS: 36415; 80053; 82248; 83615; 84100; 84550; 96367; 96375; 96413; 96417; J1100; J1453; J1642; J2469; J3480; J3490; J7050; J9035; J9045; J9201

== ENCOUNTER 2018-12-04 10:08 | Day surgery (SDC) | payer MEDICARE ==
[~2018-12-04 10:08] MED LIST changes: -Bevacizumab 350 MG in Sodium Chloride 0.9% 86 ML IVPB SCH; -CARBOplatin 300 MG in Sodium Chloride 0.9% 250 ML 250 ML IVPB SCH; +Sodium Chloride 0.9% 20 ML ONE
[2018-12-04 10:28] VITALS: BP 110/64; TEMP 99.2
== END 2018-12-04 13:29 | disposition home or self-care (01) ==
LOC: ONC/OP 10:08
PROVIDERS: ATTEND Internal Medicine Hematology & Oncology
DX: Z51.11 Encounter for antineoplastic chemotherapy (principal); C48.8 Malignant neoplasm of overlapping sites of retroperitoneum and peritoneum; Z88.0 Allergy status to penicillin; Z88.5 Allergy status to narcotic agent
CPT/HCPCS: 86304; 96375; 96413; J1100; J2469; J7050; J9201

== ENCOUNTER 2018-12-18 12:17 | Day surgery (SDC) | payer MEDICARE ==
[~2018-12-18 12:17] MED LIST changes: +Bevacizumab 350 MG in Sodium Chloride 0.9% 86 ML IVPB SCH; +CARBOplatin 300 MG in Sodium Chloride 0.9% 250 ML 250 ML IVPB SCH; -Sodium Chloride 0.9% 20 ML ONE
[2018-12-18] MEDS ORDERED: Potassium Chloride 10 MEQ/100 ML PREMIX BAG IVPB SCH (14:00)
[2018-12-18 16:09] VITALS: BP 134/61; TEMP 98.3
== END 2018-12-18 16:28 | disposition home or self-care (01) ==
LOC: ONC/OP 12:17
PROVIDERS: ATTEND Internal Medicine Hematology & Oncology
DX: Z51.11 Encounter for antineoplastic chemotherapy (principal); C48.8 Malignant neoplasm of overlapping sites of retroperitoneum and peritoneum; Z88.0 Allergy status to penicillin; Z88.5 Allergy status to narcotic agent
CPT/HCPCS: 36415; 80053; 82248; 83615; 84100; 84550; 96367; 96375; 96413; 96417; J1100; J1453; J2469; J3480; J3490; J7050; J9035; J9045; J9201

== ENCOUNTER 2018-12-25 09:43 | Day surgery (SDC) | payer MEDICARE ==
[~2018-12-25 09:43] MED LIST changes: -Bevacizumab 350 MG in Sodium Chloride 0.9% 86 ML IVPB SCH; -CARBOplatin 300 MG in Sodium Chloride 0.9% 250 ML 250 ML IVPB SCH; +GEMZAR IVPB SCH
[2018-12-25 10:30] VITALS: BP 126/62; TEMP 98.3
[2018-12-25] MEDS ORDERED: Sodium Chloride 0.9% 20 ML ONE (11:05)
== END 2018-12-25 14:18 | disposition home or self-care (01) ==
LOC: ONC/OP 09:43
PROVIDERS: ATTEND Internal Medicine Hematology & Oncology
DX: Z51.11 Encounter for antineoplastic chemotherapy (principal); C48.8 Malignant neoplasm of overlapping sites of retroperitoneum and peritoneum; R97.1 Elevated cancer antigen 125 [CA 125]; Z88.0 Allergy status to penicillin; Z88.5 Allergy status to narcotic agent
CPT/HCPCS: 96375; 96413; J1100; J1642; J2469; J7050; J9201

== ENCOUNTER 2019-01-08 10:32 | Day surgery (SDC) | payer MEDICARE ==
[~2019-01-08 10:32] MED LIST changes: +Bevacizumab 350 MG in Sodium Chloride 0.9% 86 ML IVPB SCH; +CARBOplatin 300 MG in Sodium Chloride 0.9% 250 ML 250 ML IVPB SCH; -Dexamethasone 10 MG in Sodium Chloride 0.9% 50 ML IVPB SCH; -GEMCITABINE HCL IVPB SCH
[2019-01-08] MEDS ORDERED: Sodium Chloride 0.9% 20 ML ONE (10:48)
[2019-01-08 11:32] VITALS: BP 122/69; TEMP 99
[2019-01-08] MEDS ORDERED: Potassium Chloride 10 MEQ in Premix Bag 1 BAG IVPB SCH (13:45)
== END 2019-01-08 16:13 | disposition home or self-care (01) ==
LOC: ONC/OP 10:32
PROVIDERS: ATTEND Internal Medicine Hematology & Oncology
DX: Z51.11 Encounter for antineoplastic chemotherapy (principal); C48.8 Malignant neoplasm of overlapping sites of retroperitoneum and peritoneum; R97.1 Elevated cancer antigen 125 [CA 125]; Z88.0 Allergy status to penicillin; Z88.5 Allergy status to narcotic agent
CPT/HCPCS: 36415; 80053; 82248; 83615; 84100; 84550; 86304; 96366; 96368; 96375; 96413; 96417; J1100; J1453; J1642; J2469; J3480; J3490; J7050; J9035; J9045; J9201

== ENCOUNTER 2019-01-17 08:46 | Day surgery (SDC) | payer MEDICARE ==
[~2019-01-17 08:46] MED LIST changes: -Bevacizumab 350 MG in Sodium Chloride 0.9% 86 ML IVPB SCH; -CARBOplatin 300 MG in Sodium Chloride 0.9% 250 ML 250 ML IVPB SCH
[2019-01-17 12:31] VITALS: BP 168/84
== END 2019-01-17 12:34 | disposition home or self-care (01) ==
LOC: ONC/OP 08:46
PROVIDERS: ATTEND Internal Medicine Hematology & Oncology
DX: Z51.11 Encounter for antineoplastic chemotherapy (principal); C48.8 Malignant neoplasm of overlapping sites of retroperitoneum and peritoneum; R97.1 Elevated cancer antigen 125 [CA 125]; Z88.0 Allergy status to penicillin; Z88.5 Allergy status to narcotic agent
CPT/HCPCS: 96375; 96413; J1100; J2469; J7050; J9201

== ENCOUNTER 2019-01-29 10:04 | Day surgery (SDC) | payer MEDICAID, MEDICARE ==
[~2019-01-29 10:04] MED LIST changes: +Bevacizumab 350 MG in Sodium Chloride 0.9% 86 ML IVPB SCH; +CARBOplatin 300 MG in Sodium Chloride 0.9% 250 ML 250 ML IVPB SCH
[2019-01-29 10:28] VITALS: BP 163/84; TEMP 98
[2019-01-29] MEDS ORDERED: SODIUM CHLORIDE 0.9% IVPB SCH (11:30)
[2019-01-29] MEDS ORDERED: GEMCITABINE HCL IVPB SCH (11:30)
[2019-01-29] MEDS ORDERED: Sodium Chloride 0.9% 20 ML ONE (14:02)
== END 2019-01-29 14:39 | disposition home or self-care (01) ==
LOC: ONC/OP 10:04
PROVIDERS: ATTEND Internal Medicine Hematology & Oncology
DX: Z51.11 Encounter for antineoplastic chemotherapy (principal); C48.8 Malignant neoplasm of overlapping sites of retroperitoneum and peritoneum; R97.1 Elevated cancer antigen 125 [CA 125]; Z88.0 Allergy status to penicillin; Z88.5 Allergy status to narcotic agent
CPT/HCPCS: 80053; 82248; 83615; 84100; 84550; 86304; 96366; 96367; 96375; 96413; 96417; J1100; J1453; J1642; J2469; J3480; J3490; J7050; J9035; J9045; J9201

== ENCOUNTER 2019-02-07 10:54 | Day surgery (SDC) | payer MEDICARE ==
[~2019-02-07 10:54] MED LIST changes: -Bevacizumab 350 MG in Sodium Chloride 0.9% 86 ML IVPB SCH; -CARBOplatin 300 MG in Sodium Chloride 0.9% 250 ML 250 ML IVPB SCH; +GEMCITABINE HCL IVPB SCH; -GEMZAR IVPB SCH
[2019-02-07] MEDS ORDERED: Potassium Chloride 10 MEQ in Sodium Chloride 0.9% 250 ML 250 ML IVPB SCH (11:15)
== END 2019-02-07 13:52 | disposition home or self-care (01) ==
LOC: ONC/OP 10:54
PROVIDERS: ATTEND Internal Medicine Hematology & Oncology
DX: Z51.11 Encounter for antineoplastic chemotherapy (principal); C48.8 Malignant neoplasm of overlapping sites of retroperitoneum and peritoneum; R97.1 Elevated cancer antigen 125 [CA 125]; Z88.0 Allergy status to penicillin; Z88.5 Allergy status to narcotic agent
CPT/HCPCS: 96367; 96375; 96413; J1100; J2469; J3480; J7050; J9201

== ENCOUNTER 2019-02-11 11:42 | Inpatient (IN) | payer MEDICARE ==
[2019-02-11] MEDS ORDERED: Ondansetron PF 4 MG/2 ML Vial ONE (12:08)
[2019-02-11 13:43] LABS: Hemoglobin 7.3 g/dL (12.0-16.0); Mean Corpuscular HGB CONC 34.8 g/dL (32.0-36.0); Mean Corpuscular Hemoglobin 29.6 pg (27.0-31.0); RBC Distribution Width 20.6 % (11.5-14.5); Red Blood Cell (RBC) Count 2.45 mill/uL (4.20-5.40); White Blood Cell (WBC) Count 7.2 thou/uL (4.8-10.8)
[2019-02-11 14:03] LABS: ALT (SGPT) 19 U/L (8-55); AST (SGOT) 32 U/L (5-34); Albumin 2.6 g/dL (3.4-4.8); Alkaline Phosphatase 147 U/L (40-110); Anion Gap 13 mmol/L (10-20); BUN (Urea Nitrogen) 38 mg/dL (9.8-20.1); Calc. Creatinine Clearance 0 mL/min (70-130); Calcium 7.6 mg/dL (7.8-10.44); Carbon Dioxide 18 mmol/L (23-31); Chloride 104 mmol/L (98-107); Estimated GFR-MDRD 39; Globulin 2.2 g/dL (2.4-3.5); Glucose 146 mg/dL (83-110); Lipase 15 U/L (8-78); Potassium 3.3 mmol/L (3.5-5.1); Protein, Total 4.8 g/dL (6.0-8.3); Sodium 132 mmol/L (136-145)
[2019-02-11 14:12] LABS: #Eosinphils 0.1 thou/uL (0.0-0.7); #Lymphocytes 0.4 thou/uL (1.20-3.40); #Neutrophils 8.1 thou/uL (1.40-6.50); %Basophils 0.2 % (0.0-1.0); %Eosinophils 0.8 % (0.0-10.0); %Monocytes 0.2 % (0.0-10.0); %Neutrophils 93.8 % (42.0-75.0); Anisocytosis SLIGHT = 6-15 cells (100X) (0-5/hpf); Elliptocytes SLIGHT = 2-5 cells (100X) (0-1/hpf); Hypochromia SLIGHT = 6-15 cells (100X) (0-5/hpf); MDiff Complete? YES; Mean Platelet Volume 6.3 fL (7.4-10.4); Platelet Count 56 thou/uL (130-400); Platelet Morphology Comment Appears Decreased
[2019-02-11 14:51] LABS: Bilirubin Negative (Negative); Blood, Urine 1+ (Negative); Clarity Extra Turbid (Clear); Glucose, Urine (Dipstick) Normal (Negative); Leukocyte 500 Leu/uL (Negative); Nitrite Negative (Negative); Protein, Urine (Dipstick) 300 mg/dL (Neg-Trace); Urobilinogen 3 mg/dL (Less than 2)
[2019-02-11 14:59] LABS: Bacteria/HPF 4+ HPF (None Seen); RBC/HPF 0-3 HPF (0-3); Squamous Epithelial 0-3 HPF (0-3); WBC/HPF Greater Than 50 HPF (0-3)
[2019-02-11] MEDS ORDERED: cefTRIAXone\\ROCEPHIN 1 GM VIAL ONE (15:41)
[2019-02-11] MEDS ORDERED: Senokot S 8.6-50 MG TAB PO PRN (15:54)
--- NOTE | 2019-02-11 16:48 | PDOC.EVN ---
Event Note - Event Note Event Note: Patient discussed with Noni. Case reviewed. Patient examined. Has hx of endometrial ca with recurrence and peritoneal mets. Getting chemo with Dr. Mcclelland. Recently dx'd with UTI, but did not get abx filled. Subsequently, N/ V. Brought today by son. She is pale, tachycardic. She has some dependent edema of the RUE. Bilious emesis. She has UTI, dehydration with acute renal injury, anemic and thrombocytopenic. IVF, IV abx, blood. May need to repeat CT abdomen, but should wait to see if she will improve with fluids and abx. If not, her renal function may improve enough to give IV contrast for the CT.
[2019-02-11 17:34] LABS: Iron 176 ug/dL (50-170); Iron Binding Capacity, Total 175 mcg/dL (265-497)
--- NOTE | 2019-02-11 17:52 | HP ---
PRIMARY CARE PHYSICIAN: Foreign Green MD CHIEF COMPLAINT: Nausea, vomiting, and UTI. HISTORY OF PRESENT ILLNESS: Ms. Hong is a 78-year-old female, who reported to the emergency room today after her son came to visit and noticed that she was quite pale with some nausea and vomiting for the last several days and decreased appetite. The patient describes some dysuria and frequency. Denies any abdominal pain or fever. Does report some chills. She reports that she went to see Dr. Mcclelland on Tuesday. He diagnosed her with the UTI. She had antibiotics prescribed, but [facility] was unable to deliver them, so she has not been treated. Past medical history pertinent for ovarian cancer, which was surgically treated with 9 months of chemotherapy in 2018 and then reports that it has come back and she is undergoing chemotherapy once every two weeks. Next dose was due on Tuesday, the . She reports that Dr. Mcclelland is her oncologist. She reports that she had a TIA in October. Her workup in the emergency room found her urine to be positive for UTI and 4+ bacteria. She was also found to be anemic with a hemoglobin of 7.3, hematocrit 20.9, and thrombocytopenic with a platelet count of 56. Sodium 132, potassium 3.3, BUN 38, and creatinine 1.33, which is increased from her baseline two weeks ago when her creatinine was 0.87. Albumin 2.6. In the emergency room, she was given some fluids, Zofran and a dose of Rocephin 1 g. She reports that she is feeling very nauseous. She states that she was feeling a little better after the fluids and Zofran. She was still really vomiting, but some burping up bile and spitting it out. She will be admitted to medical floor for further management. REVIEW OF SYSTEMS: The patient reports nausea and vomiting. Reports chills. Denies abdominal pain. Does report dysuria and frequency. Denies any shortness of breath. Reports that she is in a wheelchair. Normally needs a 2-person assist to transfer from the bed to the wheelchair on a normal basis and that has not changed. All other systems are reviewed and are negative unless mentioned in the HPI. PHYSICAL EXAMINATION: VITAL SIGNS: Blood pressure 194/116, pulse is 98, respiratory rate is 18, temperature is 98.9, pO2 sats are 97% on room air. CONSTITUTIONAL: The patient appears pale, but is pain free. She is alert and oriented to person, place, and time. She appears ill. HEENT: Head atraumatic, normocephalic. Eyes, pupils are equally round and reactive to light. Extraocular muscles are intact. Conjunctiva is pale. ENT, mouth exam is normal. Mucous membranes are dry. Teeth are normal. NECK: Normal range of motion. Trachea is midline. RESPIRATORY/CHEST: Breath sounds are clear. Chest expansion is equal. CARDIOVASCULAR: The patient is tachycardic. Heart sounds are normal. ABDOMEN: Diffusely tender. The patient has an ostomy in the left lower quadrant with brown stool. Stoma appears intact. No signs of infection. BACK: Normal to inspection. Normal range of motion. EXTREMITIES: Upper extremities, normal range of motion. Motor strength is normal. She is a little edematous in the right forearm, which is where the blood pressure cuff is. Radial pulse is normal. Lower extremities, normal range of motion. Motor strength is normal. Pedal pulses are normal. No edema is noted. NEUROLOGIC: The patient is oriented to person, place, and time. Speech is normal. Gait is unassessed. Cranial nerves 2 through 12 are intact. SKIN: Warm, dry, and pale. PAST MEDICAL HISTORY: GERD; ovarian cancer, treated with chemotherapy and surgery, was treated for 9 months, then in remission and then has been treated again for the last several months. PAST SURGICAL HISTORY: Ureter stent, MediPort, bilateral wrist surgery, appendectomy, colostomy, hysterectomy. PSYCHIATRIC HISTORY: None. SOCIAL HISTORY: The patient lives in a long-term care facility at [place]. She denies any alcohol or drug use. She is a former tobacco smoker, quit smoking in the past year. PLAN AND ASSESSMENT: 1. Sepsis with the urinary source. The patient was given Rocephin in the emergency room. We will continue this. Normal saline with 20 mEq of KCl at 100 mL per hour. 2. Anemia. We have ordered iron studies and ferritin. Type and screen for one unit of PRBCs. Recheck hemoglobin in the a.m. 3. Hyponatremia. We will rehydrate. 4. Hypokalemia. IV fluids with a KCl to infuse. We will recheck value in the morning. 5. Acute kidney injury, most likely related to sepsis. We will hydrate. Recheck in the morning. 6. Depending on lab values in the a.m., the patient may warrant a CT scan with IV contrast, but we will attempt to hydrate and correct the kidney function first. We will ask Dr. Mcclelland to evaluate. He has been consulted and we would appreciate any recommendations he may have. Last CT scan we have here on record is from September of 2018. 7. Deep venous thrombosis and gastrointestinal prophylaxis have been started. 8. Case discussed with Dr. Gan who agrees with plan. Please see his note. 9. Hospital course is dependent on clinical findings. Job ID: [id number]
[2019-02-11] MEDS: Famotidine 20 MG TAB PO SCH (20:59)
[2019-02-11] MEDS: NS 0.9% w/ 20 MEQ KCL 1,000 ML/1,000 ML BAG IV SCH (20:59)
[2019-02-11] MEDS: Ondansetron PF 4 MG/2 ML Vial IVP PRN (21:23)
[2019-02-12 02:54] LABS: Hemoglobin 8.1 g/dL (12.0-16.0)
[2019-02-12 03:08] LABS: ALT (SGPT) 17 U/L (8-55); AST (SGOT) 30 U/L (5-34); Albumin 2.7 g/dL (3.4-4.8); Alkaline Phosphatase 119 U/L (40-110); Anion Gap 17 mmol/L (10-20); BUN (Urea Nitrogen) 45 mg/dL (9.8-20.1); Bilirubin, Total 0.8 mg/dL (0.2-1.2); Calc. Creatinine Clearance 25 mL/min (70-130); Calcium 7.7 mg/dL (7.8-10.44); Carbon Dioxide 17 mmol/L (23-31); Chloride 106 mmol/L (98-107); Estimated GFR-MDRD 31; Globulin 2.1 g/dL (2.4-3.5); Glucose 142 mg/dL (83-110); Potassium 3.1 mmol/L (3.5-5.1); Protein, Total 4.8 g/dL (6.0-8.3); Sodium 137 mmol/L (136-145)
[2019-02-12] MEDS: Famotidine 20 MG TAB PO SCH (08:24)
[2019-02-12] MEDS: NS 0.9% w/ 20 MEQ KCL 1,000 ML/1,000 ML BAG IV SCH ×3 (08:25→21:38)
[2019-02-12] MEDS ORDERED: Prevnar 13-Val Conj/PF 0.5 ML SYRINGE IM ONE (09:00)
[2019-02-12 09:11] LABS: #Eosinphils 0.1 thou/uL (0.0-0.7); #Lymphocytes 0.4 thou/uL (1.20-3.40); %Basophils 0.2 % (0.0-1.0); %Eosinophils 1.5 % (0.0-10.0); %Lymphocytes 7.5 % (21.0-51.0); %Monocytes 0.3 % (0.0-10.0); %Neutrophils 90.5 % (42.0-75.0); MDiff Complete? YES; Mean Corpuscular HGB CONC 35.2 g/dL (32.0-36.0); Mean Corpuscular Hemoglobin 28.9 pg (27.0-31.0); Mean Corpuscular Volume 82.1 fL (78.0-98.0); Mean Platelet Volume 7.1 fL (7.4-10.4); Platelet Count 34 thou/uL (130-400); Platelet Morphology Comment Appears Decreased; Polychromasia SLIGHT = 2-3 cells (100X) (0-2/hpf); RBC Distribution Width 19.7 % (11.5-14.5); Red Blood Cell (RBC) Count 2.78 mill/uL (4.20-5.40); Schistocytes SLIGHT = 2-5 cells (100X) (0-1/hpf); Tear Drops SLIGHT = 2-5 cells (100X) (0-1/hpf); White Blood Cell (WBC) Count 5.6 thou/uL (4.8-10.8)
--- NOTE | 2019-02-12 10:23 | PDOC.HOSPP ---
- Subjective Encounter Date: 02/12/19 Encounter Time: 10:21 Subjective: Patient seen and examined for gen weakness/N/V. Developed blood in colostomy bag this AM. No CP or SOB. Received 1 unit PRBC. No other complaints. No overnight events - Objective Vital Signs & Weight: Vital Signs (12 hours) Temp Pulse Pulse Resp BP BP Pulse Ox 02/12/19 08:00 98.4 F 92 16 173/101 H 96 02/12/19 04:00 98.8 F 94 20 183/99 H 97 02/12/19 00:50 98.5 F 94 20 161/92 H 96 Weight Weight 121 lb 3 oz I&O: 02/11/19 02/12/19 02/13/19 06:59 06:59 06:59 Intake Total 1310 Output Total 475 Balance 835 Result Diagrams: 02/12/19 02:18 02/12/19 02:18 Radiology Reviewed by me: Yes (CT abd earlier this year - reviewed) Hospitalist ROS - Review of Systems Respiratory: denies: cough, dry, shortness of breath, hemoptysis, SOB with excertion, pleuritic pain, sputum, wheezing, other Cardiovascular: denies: chest pain, palpitations, orthopnea, paroxysmal noc. dyspnea, edema, light headedness, other - Medication Medications: Active Medications Generic Name Dose Route Start Last Admin Trade Name Freq PRN Reason Stop Dose Admin Famotidine 20 mg 02/11/19 21:00 02/12/19 08:24 Pepcid PO 20 mg BID MAXIMIILANO Administration Potassium Chloride/Sodium Chloride 1,000 ml in 1,000 mls @ 100 mls/hr 16:30 02/12/19 08:25 Ns 0.9% W/ 20 Meq Kcl IV 1,000 mls .Q10H MAXIMILIANO Administration Ondansetron HCl 4 mg 02/11/19 16:37 02/11/19 21:23 Zofran IVP 4 mg Q6H PRN Administration Nausea/Vomiting - Exam General Appearance: NAD Neck: supple, no JVD Heart: RRR, no gallops, no rubs Heart - other findings: no heaves/pulsations Respiratory: CTAB, no wheezes, no rales, no ronchi Gastrointestinal: soft, non-tender, non-distended, normal bowel sounds Extremities: no edema Hosp A/P - Plan Gen weakness N/V LGI bleeding UTI Acute blood loss anemia CHARLA on CKD 3 Hypokalemia Metabolic acidosis HTN - uncontrolled PLAN: Cont IV Ceftriaxone Cont NS with KCL @ 100 Check post void residual Check renal USG Consult GI Recheck HH and BMP later today and in AM Clear liqd diet
[2019-02-12] MEDS ORDERED: Carvedilol 3.125 MG TAB PO SCH (10:30)
[2019-02-12] MEDS: Ondansetron PF 4 MG/2 ML Vial IVP PRN (13:19)
--- NOTE | 2019-02-12 13:20 | ULT ---
Bilateral renal ultrasound CLINICAL INDICATION: Acute renal insufficiency, UTI. History of endometrial cancer COMPARISON: CT abdomen and pelvis on 10/11/2018. FINDINGS: Right kidney: There is no evidence of a renal mass, renal calculus, or hydronephrosis seen. The right kidney measures 10 cm x 4.9 cm. Left kidney: There is no evidence of a renal mass, renal calculus, or hydronephrosis. The left kidney measures 11 cm x 5.1 cm. Urinary bladder: Not imaged. Incidental note is made of a small left pleural effusion. IMPRESSION: 1. Small left pleural effusion. 2. Normal appearing bilateral kidneys without evidence of hydronephrosis.
[2019-02-12] MEDS: cefTRIAXone\\ROCEPHIN 1 GM in Sodium Chloride 0.9% 100 ML IVPB SCH (15:10)
[2019-02-12] MEDS: Carvedilol 3.125 MG TAB PO SCH (16:18)
[2019-02-12 16:36] LABS: Hemoglobin 7.4 g/dL (12.0-16.0)
--- NOTE | 2019-02-12 16:59 | CON ---
DATE OF CONSULTATION: 02/12/2019 REASON FOR CONSULTATION: GI bleeding. HISTORY OF PRESENT ILLNESS: Tia Hong is a very pleasant 78-year-old woman with an unfortunate history of metastatic ovarian cancer. She has had multiple abdominal surgeries requiring some degree of bowel resection. She has been undergoing chemotherapy with agents including Avastin every 2 weeks, followed by Dr. Mcclelland and Meche Vidales. She has a history of TIA back in October. She also has a history of recurrent urinary tract infections. She has been having some dysuria and urinary frequency as well as nausea and a few episodes of vomiting over the past week or so. Last week, she was diagnosed with urinary tract infection, but did not end up getting the antibiotics. Her nausea progressed along with generalized weakness and she was admitted to the hospital last night. She was noted to be a bit more anemic with hemoglobin down to 7.3 and also have induced thrombocytopenia with platelets 56. She received 1 unit of RBC transfusion, hemoglobin is now up to 8.1, platelets are only 34. Starting last night, she began to have some bright red blood in her ostomy bag. She says this has never happened before. She has some ongoing abdominal discomfort, but nothing apart from her baseline. She has not had any vomiting today and is actually feeling a bit better. She is receiving antibiotics for her urinary infection. She has remained hemodynamically stable. REVIEW OF SYSTEMS: Full review of systems including constitutional, head, eyes, ears, nose, throat, GI, , cardiovascular, respiratory, musculoskeletal, and neurologic systems is negative except as noted in the HPI. PAST MEDICAL HISTORY: GERD, ovarian cancer, status post multiple abdominal surgeries with left lower quadrant colostomy, currently on chemotherapy, ureteral stent, MediPort placement, bilateral wrist surgery, appendectomy, and hysterectomy. SOCIAL HISTORY: The patient lives in a long-term care facility at [place]. No alcohol or drug abuse. She quit smoking in the past year. ALLERGIES: CODEINE, OXYCODONE, AND PENICILLIN. INPATIENT MEDICATIONS: 1. Coreg. 2. Ceftriaxone. 3. Pepcid. 4. Zofran. 5. Potassium chloride. PHYSICAL EXAMINATION: VITAL SIGNS: Temperature 98.4, pulse 92, blood pressure 173/101, and oxygen saturation 96% on room air. GENERAL: Pale, frail 78-year-old woman, sitting up in bed comfortably, in no distress. SKIN: She is pale. No jaundice. No rashes are palpable. EYES: No scleral icterus. Extraocular eye movements intact. ENT: Mucous membranes moist. No oral lesions. LYMPH: No submandibular or supraclavicular lymphadenopathy. THYROID: Nontender to palpation. HEART: Regular rate and rhythm. LUNGS: Clear to auscultation bilaterally. ABDOMEN: Bowel sounds are present. Soft. Mild tenderness to palpation in the epigastrium. No guarding or rebound tenderness. Left lower quadrant colostomy looks good, but there is some fresh dark blood in the colostomy bag. EXTREMITIES: No peripheral edema. VESSELS: Radial pulses 2+ bilaterally. NEURO: Cranial nerves II through XII intact bilaterally. LABORATORY STUDIES: Hemoglobin 7.3 on admission, up to 8.1 after 1 unit RBC transfusion; platelets are low at 34; and WBC 5.6. BUN 45, creatinine 1.63. Ferritin 1708. Total bilirubin 0.8, alkaline phosphatase 119, AST 30, ALT 17, albumin 2.7, and lipase 15. FOBT actually negative. Urinalysis shows +50 wbc's. Urine culture is positive for presumptive E coli. ASSESSMENT: 1. Metastatic ovarian cancer. 2. Acute kidney injury. 3. Urinary tract infection. 4. Bleeding into colostomy bag, acute. 5. Anemia, stable today. 6. Thrombocytopenia. PLAN: I had a long discussion with the patient and also touch base with Meche Vidales of the Oncology Service. The patient has new blood in her ostomy bag in the context of new thrombocytopenia, possibly secondary to myelosuppression from chemotherapeutic agents. I would hesitate to perform any endoscopic investigation at this time with the platelets so low, as this might only be expected to worsen any bleeding. For now, I would just continue to trend H and H and transfuse as needed, follow the platelets. Hopefully, as platelets improve, the amount of bleeding will resolve. If so, we may be able to avoid any endoscopy. If not, could plan for endoscopic investigation later this admission. Thank you for the consultation. Please call anytime with questions or concerns. Job ID: [id number]
[2019-02-12 20:25] LABS: Hemoglobin 6.7 g/dL (12.0-16.0)
--- NOTE | 2019-02-12 21:48 | CON ---
DATE OF CONSULTATION: REASON FOR CONSULT: Ovarian cancer. HISTORY OF PRESENT ILLNESS: Ms. Hong is a 78-year-old female who has advanced stage ovarian carcinoma. She is currently receiving treatment with carboplatin, Gemzar, and Avastin. She has received five cycles with a decline in her CA-125 from 550 to 157. She has been struggling with chronic urinary tract infections and when she saw Dr. Mcclelland on February 07, was given a prescription for Bactrim DS. Unfortunately, she is not able to get this prescription filled and continued to feel worse. She presented to the ER yesterday for generalized weakness, nausea, vomiting, and urinary tract infection. Since arrival, she has started having blood from her colostomy. She states that this has never happened before. GI has been consulted. She complains of generalized weakness, abdominal pain, occasional nausea, and burning with urination. PAST MEDICAL HISTORY: 1. Metastatic ovarian carcinoma. 2. Hypertension. 3. COPD. 4. Arthritis. 5. Acid reflux. 6. Remote history of alcoholism. PAST SURGICAL HISTORY: 1. Exploratory laparotomy with TAHBSO. 2. Appendectomy. 3. LAR with end-colostomy. 4. Ureteral repair and stent placement. 5. Fracture repair. ALLERGIES: TO CODEINE AND TO PENICILLIN. HOME MEDICATIONS: Prilosec, Zofran, and K-Dur. FAMILY HISTORY: Mother had colon cancer. Father had gastric cancer. SOCIAL HISTORY: Single, has 1 child, lives in [place]. No alcohol, tobacco, or illicit drug use. REVIEW OF SYSTEMS: A 10-point review of systems is negative except for noted in HPI. PHYSICAL EXAMINATION: VITAL SIGNS: Temperature is 98.4, pulse is 92, respiratory rate 16, BP is 173/101. She is 96% on room air. GENERAL: Chronically ill-appearing female, in no acute distress. HEENT: Normocephalic and atraumatic. Pupils are equal and reactive to light. NECK: Supple. CV: Regular rate and rhythm. LUNGS: Clear anterior. ABDOMEN: Soft and nontender. She has a left lower quadrant colostomy with dark blood. Bowel sounds are positive. EXTREMITIES: No clubbing, cyanosis, or edema. SKIN: No rash. HEMATOLOGIC: She has scattered bruising on her upper extremities. NEUROLOGIC: Nonfocal. PERTINENT LABS AND X-RAYS: Current WBCs are 5.6, hemoglobin 8.1, hematocrit 23.8, platelet count is 34,000. She has 91% neutrophils and 7% lymphocytes. Sodium is 137, potassium 3.1, chloride 106, CO2 of 17, BUN is 45, creatinine 1.63, lactic acid 1.7, calcium 7.7. Ferritin is 1700. Total bilirubin is 0.8, AST is 30, ALT is 17, alkaline phosphatase is 119. Serum total protein 4.8, albumin 2.7, globulin 2.1. Renal ultrasound shows small left pleural effusion and normal kidneys. ASSESSMENT: 1. Urinary tract infection. 2. Metastatic ovarian cancer, on chemo. 3. Acute gastrointestinal bleed. 4. Anemia and thrombocytopenia from chemo. DISCUSSION: The patient's UTI has been treated with antibiotics. GI has been consulted for her bleeding through her colostomy. Her hemoglobin has been stable. Her platelet counts are 34,000. We will hold transfusion at this time until GI sees the patient. The patient is on Avastin, which can cause some hemorrhage, although she has had no difficulty with this in the past. We will likely hold this medication until she improves. Thank you for the consult. We will follow her hospital course. Job ID: [id number]
[2019-02-13] MEDS: NS 0.9% w/ 20 MEQ KCL 1,000 ML/1,000 ML BAG IV SCH ×2 (04:13→16:55)
[2019-02-13] MEDS: cloNIDine 0.1 MG TAB PO PRN ×2 (05:24→16:59)
[2019-02-13] MEDS: Ondansetron PF 4 MG/2 ML Vial IVP PRN ×2 (05:24→19:39)
[2019-02-13 06:06] LABS: ALT (SGPT) 14 U/L (8-55); AST (SGOT) 26 U/L (5-34); Albumin 2.6 g/dL (3.4-4.8); Alkaline Phosphatase 90 U/L (40-110); Anion Gap 10 mmol/L (10-20); BUN (Urea Nitrogen) 37 mg/dL (9.8-20.1); Bilirubin, Total 0.6 mg/dL (0.2-1.2); Calc. Creatinine Clearance 36 mL/min (70-130); Calcium 7.6 mg/dL (7.8-10.44); Carbon Dioxide 21 mmol/L (23-31); Chloride 108 mmol/L (98-107); Estimated GFR-MDRD 45; Globulin 2.1 g/dL (2.4-3.5); Glucose 88 mg/dL (83-110); Magnesium 1.3 mg/dL (1.6-2.6); Potassium 3.8 mmol/L (3.5-5.1); Protein, Total 4.7 g/dL (6.0-8.3); Sodium 135 mmol/L (136-145)
[2019-02-13 06:27] LABS: #Lymphocytes 0.6 thou/uL (1.20-3.40); #Neutrophils 1.8 thou/uL (1.40-6.50); %Eosinophils 1.8 % (0.0-10.0); %Monocytes 0.7 % (0.0-10.0); %Neutrophils 72.4 % (42.0-75.0); Anisocytosis SLIGHT = 6-15 cells (100X) (0-5/hpf); Elliptocytes SLIGHT = 2-5 cells (100X) (0-1/hpf); Hemoglobin 8.9 g/dL (12.0-16.0); MDiff Complete? YES; Mean Corpuscular HGB CONC 34.5 g/dL (32.0-36.0); Mean Corpuscular Hemoglobin 29.4 pg (27.0-31.0); Mean Corpuscular Volume 85.2 fL (78.0-98.0); Mean Platelet Volume 15.4 fL (7.4-10.4); Platelet Count 28 thou/uL (130-400); Platelet Morphology Comment Appears Decreased; RBC Distribution Width 18.1 % (11.5-14.5); Red Blood Cell (RBC) Count 3.02 mill/uL (4.20-5.40); Schistocytes SLIGHT = 2-5 cells (100X) (0-1/hpf); White Blood Cell (WBC) Count 2.4 thou/uL (4.8-10.8)
[2019-02-13] MEDS ORDERED: Magnesium Sulfate 4 GM in Sodium Chloride 0.9% 250 ML 250 ML IVPB SCH (06:45)
[2019-02-13 07:58] LABS: INR-International Normal Ratio 1.3; PTT 30.2 SEC (22.9-36.1); Prothrombin Time 16.3 SEC (12.0-14.7)
[2019-02-13] MEDS: Famotidine 20 MG TAB PO SCH (08:10)
[2019-02-13] MEDS: Carvedilol 3.125 MG TAB PO SCH ×2 (08:10→16:57)
[2019-02-13] MEDS: Saccharomyces boulardii 250 MG CAP PO SCH (08:10)
--- NOTE | 2019-02-13 14:31 | PRG ---
DATE OF SERVICE: 02/13/2019 SUBJECTIVE: Ms. Hong is feeling all right. No abdominal pain or nausea. She has continued to have some red blood come out into the colostomy bag, probably 100 mL over the course of the day so far. She has remained hemodynamically stable. Hemoglobin did drift down to 6.7 yesterday, so she received another unit of RBCs and is now up to 8.9. Platelets further declined though down to 28. OBJECTIVE: VITAL SIGNS: Temperature 97.8, pulse 72, blood pressure 180/92, and 95% oxygen saturation on room air. GENERAL: In no acute distress. HEART: Regular rate and rhythm. LUNGS: Clear to auscultation bilaterally. ABDOMEN: Nontender to palpation. Still some fresh blood and clear fluid in the colostomy bag. Ostomy site looks good. EXTREMITIES: No peripheral edema in the lower extremities. She has some subcutaneous fluid around the elbows and some weeping from minor skin breaks in the area. LABORATORY STUDIES: Platelets down to 28, hemoglobin 8.9, WBC 2.4. INR is 1.3. Sodium 135, potassium 3.8, BUN 37, creatinine 1.17, total bilirubin 0.6, alkaline phosphatase 90, AST 26, ALT 14. ASSESSMENT AND PLAN: 1. Blood in colostomy bag. 2. Anemia, multifactorial secondary to myelosuppression and acute blood loss. 3. Thrombocytopenia, likely secondary to chemotherapy. 4. Metastatic ovarian cancer. 5. Urinary tract infection with acute kidney injury. The patient has responded well to a second unit of RBC transfusion. One unit of platelet transfusion is also planned for today. I would still recommend not pursuing any endoscopic investigation at this point, given the degree of the thrombocytopenia and her relative clinical stability. Continue to follow the CBC and transfuse as needed. We will go ahead and order a diet for the patient today. GI can continue to follow along. Please call anytime with questions or concerns. Job ID: [id number]
--- NOTE | 2019-02-13 14:39 | PDOC.MOPN ---
Interval History: less blood in colostomy. No abdominal pain, nausea. - Vital Signs Vital Signs: Vital Signs (12 hours) Temp Pulse Resp BP BP Pulse Ox 02/13/19 07:37 97.8 F 72 16 180/92 H 95 02/13/19 05:24 196/109 H 02/13/19 04:00 97.7 F 80 18 196/109 H 95 Weight Admit Weight 121 lb 3 oz Weight 124 lb 6 oz - Physical Exam General: Alert, Oriented x3, No acute distress HEENT: Atraumatic, PERRLA, EOMI, Mucous membr. moist/pink Cardiovascular: Regular rate, Normal S1, Normal S2, No murmurs, Gallops, Rubs Abdomen: Other Extremities: No clubbing, No cyanosis, No edema, Normal pulses, No tenderness/ swelling Skin: No rashes, No breakdown, No significant lesion Neurological: Normal gait, Normal speech, Strength at 5/5 X4 ext, Normal tone, Sensation intact, Cranial nerves 3-12 NL, Reflexes 2+ Psych/Mental Status: Mental status NL, Mood NL - Labs Result Diagrams: 02/13/19 05:25 02/13/19 03:30 Lab results: Laboratory Results - last 24 hr 02/13/19 07:37: PT 16.3 H, INR 1.3, APTT 30.2 02/13/19 05:25: WBC 2.4 L, RBC 3.02 L, Hgb 8.9 L, Hct 25.7 L, MCV 85.2, MCH 29.4 , MCHC 34.5, RDW 18.1 H, Plt Count 28 L*, MPV 15.4 H, Neutrophils % 72.4, Neutrophils % (Manual) Not Reportable, Lymphocytes % 25.0, Monocytes % 0.7, Eosinophils % 1.8, Basophils % 0.0, Neutrophils # 1.8, Lymphocytes # 0.6 L, Monocytes # 0.0 L, Eosinophils # 0.0, Basophils # 0.0, Plt Morphology Comment Appears Decreased L, Anisocytosis SLIGHT = 6-15 cells, Elliptocytes SLIGHT = 2- 5 cells, Schistocytes SLIGHT = 2-5 cells 02/13/19 03:30: Sodium 135 L, Potassium 3.8, Chloride 108 H, Carbon Dioxide 21 L , Anion Gap 10, BUN 37 H, Creatinine 1.17 H, Estimated GFR (MDRD) 45, Glucose 88 , Calcium 7.6 L, Magnesium 1.3 L, Total Bilirubin 0.6, AST 26, ALT 14, Alkaline Phosphatase 90, Serum Total Protein 4.7 L, Albumin 2.6 L, Globulin 2.1 L, Albumin/Globulin Ratio 1.2 02/12/19 20:15: Hgb 6.7 L, Hct 19.7 L 02/12/19 16:20: Hgb 7.4 L, Hct 21.6 L 02/11/19 17:12: Blood Type O POSITIVE, Antibody Screen NEGATIVE, Crossmatch See Detail Status: lab reviewed by me A/P - Problem (1) Ovarian ca Current Visit: Yes Status: Acute (2) Anemia Current Visit: Yes Code(s): D64.9 - ANEMIA, UNSPECIFIED Status: Acute (3) Thrombocytopenia Current Visit: Yes Code(s): D69.6 - THROMBOCYTOPENIA, UNSPECIFIED Status: Acute - Plan Plan: Patient had good response to transfusion of PRBC plan to give platelets today Discussed with Dr. brooks. Recommend transfusion and supportive care hopefully she will stop bleeding with platelets Hold endoscopy for now
[2019-02-13] MEDS: cefTRIAXone\\ROCEPHIN 1 GM in Sodium Chloride 0.9% 100 ML IVPB SCH (16:57)
--- NOTE | 2019-02-13 23:03 | PDOC.HOSPP ---
- Subjective Encounter Date: 02/13/19 Encounter Time: 18:00 Subjective: Patient seen and examined for UTI/Anemia. Nausea +. No new complaints. No overnight events - Objective Vital Signs & Weight: Vital Signs (12 hours) Temp Pulse Pulse Resp BP BP BP 02/13/19 20:16 97.6 F 88 18 160/91 H 02/13/19 20:00 02/13/19 16:59 184/96 H 02/13/19 16:46 97.8 F 74 18 184/96 H 02/13/19 15:07 97.9 F 70 18 170/104 H 02/13/19 14:51 97.9 F 73 18 178/90 H Pulse Ox 02/13/19 20:16 94 L 02/13/19 20:00 94 L 02/13/19 16:59 02/13/19 16:46 94 L 02/13/19 15:07 02/13/19 14:51 Weight Admit Weight 121 lb 3 oz Weight 124 lb 6 oz I&O: 02/12/19 02/13/19 02/14/19 06:59 06:59 06:59 Intake Total 1310 2155 2290 Output Total 475 75 Balance 835 2080 2290 Result Diagrams: 02/14/19 04:00 02/14/19 03:30 Hospitalist ROS - Review of Systems Cardiovascular: denies: chest pain, palpitations, orthopnea, paroxysmal noc. dyspnea, edema, light headedness, other Gastrointestinal: denies: nausea, vomiting, abdominal pain, diarrhea, constipation, melena, hematochezia, other - Medication Medications: Active Medications Generic Name Dose Route Start Last Admin Trade Name Freq PRN Reason Stop Dose Admin Carvedilol 3.125 mg 02/12/19 17:00 02/13/19 16:57 Coreg PO 3.125 mg BID-WM MAXIMILIANO Administration Clonidine 0.1 mg 02/12/19 10:15 02/13/19 16:59 Catapres PO 0.1 mg Q4H PRN Administration SBP Greater Than 180 Famotidine 20 mg 02/13/19 09:00 02/13/19 08:10 Pepcid PO 20 mg DAILY MAXIMILIANO Administration Ceftriaxone Sodium 1 gm/ 100 mls @ 200 mls/hr 02/12/19 15:00 02/13/19 16:57 Sodium Chloride IVPB 100 mls 1500 MAXIMILIANO Administration Ondansetron HCl 4 mg 02/11/19 16:37 02/13/19 19:39 Zofran IVP 4 mg Q6H PRN Administration Nausea/Vomiting Saccharomyces Boulardii 250 mg 02/13/19 09:00 02/13/19 08:10 Florastor PO 250 mg DAILY MAXIMILIANO Administration - Exam General Appearance: NAD Neck: supple, no JVD Heart: RRR, no gallops Respiratory: CTAB, no rales Gastrointestinal: soft, non-tender, normal bowel sounds Gastrointestinal - other findings: reddish brown liqd stool in Colostomy bag Hosp A/P - Plan Gen weakness N/V LGI bleeding UTI Acute blood loss anemia Thrombocytopenia CHARLA on CKD 3 Hypokalemia Metabolic acidosis HTN Ovarian CA on chemo PLAN: s/p Platelet transfusion Cont IV Ceftriaxone Reduce IVF to 50 ml/hr Cont Coreg AM labs GI/Onc input appreciated
[2019-02-14] MEDS: NS 0.9% w/ 20 MEQ KCL 1,000 ML/1,000 ML BAG IV SCH ×2 (00:35→14:50)
[2019-02-14] MEDS: Ondansetron PF 4 MG/2 ML Vial IVP PRN ×3 (03:16→18:21)
[2019-02-14 04:33] LABS: ALT (SGPT) 13 U/L (8-55); AST (SGOT) 27 U/L (5-34); Albumin 2.8 g/dL (3.4-4.8); Alkaline Phosphatase 86 U/L (40-110); Anion Gap 9 mmol/L (10-20); BUN (Urea Nitrogen) 34 mg/dL (9.8-20.1); Bilirubin, Total 0.4 mg/dL (0.2-1.2); Calc. Creatinine Clearance 38 mL/min (70-130); Calcium 7.8 mg/dL (7.8-10.44); Carbon Dioxide 21 mmol/L (23-31); Chloride 110 mmol/L (98-107); Estimated GFR-MDRD 47; Glucose 100 mg/dL (83-110); Potassium 4.2 mmol/L (3.5-5.1); Protein, Total 4.8 g/dL (6.0-8.3); Sodium 136 mmol/L (136-145)
[2019-02-14 04:33] LABS: Eosinophils 2 % (0-10); Hemoglobin 8.1 g/dL (12.0-16.0); Lymphocytes 56 % (21-51); MDiff Complete? YES; Mean Corpuscular HGB CONC 34.3 g/dL (32.0-36.0); Mean Corpuscular Hemoglobin 29.3 pg (27.0-31.0); Mean Corpuscular Volume 85.4 fL (78.0-98.0); Mean Platelet Volume 5.1 fL (7.4-10.4); Neutrophil 42 % (42-75); Nucleated RBC 1 % (0); Platelet Count 37 thou/uL (130-400); Platelet Morphology Comment Appears Decreased; RBC Distribution Width 18.2 % (11.5-14.5); Red Blood Cell (RBC) Count 2.76 mill/uL (4.20-5.40); White Blood Cell (WBC) Count 1.3 thou/uL (4.8-10.8)
[2019-02-14] MEDS: cloNIDine 0.1 MG TAB PO PRN ×2 (04:41→17:31)
[2019-02-14] MEDS: Famotidine 20 MG TAB PO SCH (08:47)
[2019-02-14] MEDS: Carvedilol 3.125 MG TAB PO SCH ×2 (08:48→17:28)
[2019-02-14] MEDS: Saccharomyces boulardii 250 MG CAP PO SCH (08:48)
--- NOTE | 2019-02-14 11:39 | PDOC.MOPN ---
Interval History: bleeding improved, stool noted in colostomy - Vital Signs Vital Signs: Vital Signs (12 hours) Temp Pulse Resp BP BP Pulse Ox 02/14/19 11:15 97.9 F 71 17 168/88 H 93 L 02/14/19 08:59 93 L 02/14/19 07:04 97.9 F 68 17 166/81 H 68 L 02/14/19 04:41 184/96 H 02/14/19 04:00 97.6 F 76 18 184/90 H 93 L 02/14/19 00:00 97.9 F 69 18 161/81 H 92 L Weight Admit Weight 121 lb 3 oz Weight 124 lb 6 oz - Physical Exam General: Alert, Oriented x3, No acute distress HEENT: Atraumatic, PERRLA, EOMI, Mucous membr. moist/pink Lungs: Clear to auscultation, Normal air movement Cardiovascular: Regular rate, Normal S1, Normal S2, No murmurs, Gallops, Rubs Abdomen: Normal bowel sounds, Soft, No tenderness, No hepatospenomegaly, No masses Extremities: No clubbing, No cyanosis, No edema, Normal pulses, No tenderness/ swelling Skin: No rashes, No breakdown, No significant lesion Neurological: Normal gait, Normal speech, Strength at 5/5 X4 ext, Normal tone, Sensation intact, Cranial nerves 3-12 NL, Reflexes 2+ Psych/Mental Status: Mental status NL, Mood NL - Labs Result Diagrams: 02/14/19 04:00 02/14/19 03:30 Lab results: Laboratory Results - last 24 hr 02/14/19 04:00: WBC 1.3 L, RBC 2.76 L, Hgb 8.1 L, Hct 23.6 L, MCV 85.4, MCH 29.3 , MCHC 34.3, RDW 18.2 H, Plt Count 37 L, MPV 5.1 L, Neutrophils % (Manual) 42, Lymphocytes % (Manual) 56 H, Eosinophils % (Manual) 2, Nucleated RBCs # (Man) 1 H, Plt Morphology Comment Appears Decreased L 02/14/19 03:30: Sodium 136, Potassium 4.2, Chloride 110 H, Carbon Dioxide 21 L, Anion Gap 9 L, BUN 34 H, Creatinine 1.13 H, Estimated GFR (MDRD) 47, Glucose 100 , Calcium 7.8, Magnesium 2.0, Total Bilirubin 0.4, AST 27, ALT 13, Alkaline Phosphatase 86, Serum Total Protein 4.8 L, Albumin 2.8 L, Globulin 2.0 L, Albumin/Globulin Ratio 1.4 02/11/19 17:12: Blood Type O POSITIVE, Antibody Screen NEGATIVE, Crossmatch See Detail Status: lab reviewed by me A/P - Problem (1) Ovarian ca Current Visit: Yes Status: Acute (2) Anemia Current Visit: Yes Code(s): D64.9 - ANEMIA, UNSPECIFIED Status: Acute (3) Thrombocytopenia Current Visit: Yes Code(s): D69.6 - THROMBOCYTOPENIA, UNSPECIFIED Status: Acute - Plan Plan: Monitor CBC and transfuse prn Next chemo on Monday 02/19 home when CBC stable and ok with Sound/GI
--- NOTE | 2019-02-14 13:39 | PRG ---
DATE OF SERVICE: SUBJECTIVE: Ms. Hong is feeling okay. No abdominal pain or nausea. She just gags and spits up from [id number], but she tolerated her breakfast earlier today without difficulty. Her colostomy output has cleared up. There is now liquid brown stool. No further redness. She has remained hemodynamically stable. OBJECTIVE: VITAL SIGNS: Temperature 97.9, pulse 71, blood pressure 168/88, 93% oxygen saturation on room air. GENERAL: No acute distress. HEART: Regular rate and rhythm. LUNGS: Clear to auscultation bilaterally. ABDOMEN: Soft, nontender. Brown stool in ostomy bag. EXTREMITIES: No peripheral edema. LABORATORY STUDIES: Hemoglobin 8.1, WBC 1.3, platelets 37. INR 1.3. Sodium 136, potassium 4.2, BUN 34, creatinine 1.13. LFTs remain normal. ASSESSMENT AND PLAN: 1. Bleeding per colostomy, resolved. 2. Anemia, multifactorial secondary to myelosuppression and acute blood loss, stabilizing. 3. Thrombocytopenia, likely secondary to chemotherapy. 4. Metastatic ovarian cancer. 5. Urinary tract infection with acute kidney injury. It is encouraging that the overt bleeding seems to have resolved. Hemoglobin declined a little bit today, but is overall more stable. Platelets remain low. I would not proceed with any endoscopic investigation, given the degree of her thrombocytopenia and her relative clinical stability. We would continue to follow the CBC and transfuse as needed. Continue with her diet. GI will sign off at this time, but please call back anytime with questions or concerns. Job ID: [id number]
[2019-02-14 13:46] VITALS: BMI 20.7
[2019-02-14] MEDS: cefTRIAXone\\ROCEPHIN 1 GM in Sodium Chloride 0.9% 100 ML IVPB SCH (14:50)
--- NOTE | 2019-02-14 14:56 | PQF ---
CLINICAL DOCUMENTATION IMPROVEMENT CLARIFICATION FORM: ICD-10 Updated PLEASE DO AN ADDENDUM TO THE PROGRESS NOTE WITH ANY DOCUMENTATION UPDATES OR ADDITIONS AND CARRY THROUGH TO DC SUMMARY. THANK YOU. DATE: 02/14/19 ATTN: DR. CASH Please exercise your independent, professional judgment in responding to the clarification form. Clinical indicators are provided on the bottom of this form for your review Please check appropriate box(s) to clarify if the following diagnosis has been ruled in or ruled out: "SEPSIS" [ ] Ruled in diagnosis [ ] Continue to treat [ ] Resolved [ ] Ruled out diagnosis [ ] Cannot rule out diagnosis [ ] Other diagnosis [ ] Unable to determine In addition, please specify: Present on Admission (POA): [ ] Yes [ ] No [ ] Unable to determine For continuity of documentation, please document condition throughout progress notes and discharge summary. Thank You. CLINICAL INDICATORS - SIGNS / SYMPTOMS / LABS H&P 02/11: "SEPSIS WITH URINARY SOURCE" WBC 02/14: 1.3 PULSE 105 (ER NOTE) RISKS: UTI (H&P 02/11) "CHEMOTHERAPY EVERY TWO WEEKS" TREATMENT: IV ROCEPHIN (ER-PRESENT) IV FLUIDS (ER-PRESENT) BLOOD, URINE AND STOOL CULTURES (02/11) (This form is maintained as a part of the permanent medical record) 2014 [employer], [employer]. All Rights Reserved [email or web address] Office: [phone] MICK
[2019-02-14] MEDS ORDERED: Ondansetron ORAL SOLN. 4 MG/5 ML UDCUP PO PRN (17:37)
--- NOTE | 2019-02-14 23:04 | PDOC.HOSPP ---
- Subjective Encounter Date: 02/14/19 Encounter Time: 09:30 Subjective: Patient seen and examined for GI bleed/UTI. Nausea +. No other complaints. No overnight events - Objective Vital Signs & Weight: Vital Signs (12 hours) Temp Pulse Resp BP BP Pulse Ox 02/14/19 20:00 98.0 F 73 18 166/95 H 94 L 02/14/19 18:29 90 19 165/92 H 94 L 02/14/19 17:31 197/93 H 02/14/19 11:15 97.9 F 71 17 168/88 H 93 L Weight Admit Weight 121 lb 3 oz Weight 124 lb 6 oz I&O: 02/13/19 02/14/19 02/15/19 06:59 06:59 06:59 Intake Total 2155 2290 1750 Output Total 75 105 Balance 2080 2290 1645 Result Diagrams: 02/14/19 04:00 02/14/19 03:30 Hospitalist ROS - Review of Systems Respiratory: denies: cough, dry, shortness of breath, hemoptysis, SOB with excertion, pleuritic pain, sputum, wheezing, other Cardiovascular: denies: chest pain, palpitations, orthopnea, paroxysmal noc. dyspnea, edema, light headedness, other - Medication Medications: Active Medications Generic Name Dose Route Start Last Admin Trade Name Freq PRN Reason Stop Dose Admin Carvedilol 3.125 mg 02/12/19 17:00 02/14/19 17:28 Coreg PO 3.125 mg BID-WM MAXIMILIANO Administration Clonidine 0.1 mg 02/12/19 10:15 02/14/19 17:31 Catapres PO 0.1 mg Q4H PRN Administration SBP Greater Than 180 Ceftriaxone Sodium 1 gm/ 100 mls @ 200 mls/hr 02/12/19 15:00 02/14/19 14:50 Sodium Chloride IVPB 100 mls 1500 MAXIMILIANO Administration Potassium Chloride/Sodium Chloride 1,000 ml in 1,000 mls @ 50 mls/hr 02/13/19 19:48 02/14/19 14:50 Ns 0.9% W/ 20 Meq Kcl IV 1,000 mls .Q20H MAXIMILIANO Administration Pantoprazole Sodium 40 mg 02/14/19 21:00 02/14/19 20:18 Protonix PO 40 mg HS MAXIMILIANO Administration Saccharomyces Boulardii 250 mg 02/13/19 09:00 02/14/19 08:48 Florastor PO 250 mg DAILY MAXIMILIANO Administration - Exam General Appearance: NAD Heart: RRR, no gallops Respiratory: CTAB, no rales Gastrointestinal: soft, non-tender, normal bowel sounds Gastrointestinal - other findings: Colostomy - brownish liqd stool Extremities: no edema Hosp A/P - Plan DVT proph w/SCDs Gen weakness N/V LGI bleeding Sepsis due to UTI Acute blood loss anemia s/p 1 unit PRBC Thrombocytopenia CHARLA on CKD 3 Hypokalemia Metabolic acidosis HTN Ovarian CA on chemo PLAN: Cont IV Ceftriaxone Cont IVF Add neutropenic precautions Cont Coreg and other meds as above AM labs
[2019-02-15] MEDS: Ondansetron PF 4 MG/2 ML Vial IVP PRN ×4 (00:14→21:12)
[2019-02-15 05:47] LABS: ALT (SGPT) 11 U/L (8-55); AST (SGOT) 24 U/L (5-34); Albumin 2.8 g/dL (3.4-4.8); Alkaline Phosphatase 88 U/L (40-110); Anion Gap 10 mmol/L (10-20); BUN (Urea Nitrogen) 34 mg/dL (9.8-20.1); Bilirubin, Total 0.4 mg/dL (0.2-1.2); Calc. Creatinine Clearance 40 mL/min (70-130); Calcium 7.8 mg/dL (7.8-10.44); Carbon Dioxide 19 mmol/L (23-31); Chloride 110 mmol/L (98-107); Estimated GFR-MDRD 50; Globulin 2.2 g/dL (2.4-3.5); Glucose 87 mg/dL (83-110); Magnesium 1.8 mg/dL (1.6-2.6); Potassium 4.1 mmol/L (3.5-5.1); Sodium 135 mmol/L (136-145)
[2019-02-15 06:14] LABS: Anisocytosis MODERATE=16-30 cells (100X) (0-5/hpf); Band 2 % (5-11); Eosinophils 2 % (0-10); Hemoglobin 8.2 g/dL (12.0-16.0); Lymphocytes 42 % (21-51); MDiff Complete? YES; Mean Corpuscular HGB CONC 34.1 g/dL (32.0-36.0); Mean Corpuscular Hemoglobin 29.2 pg (27.0-31.0); Mean Corpuscular Volume 85.5 fL (78.0-98.0); Mean Platelet Volume 14.3 fL (7.4-10.4); Monocytes 2 % (0-10); Neutrophil 52 % (42-75); Platelet Count 24 thou/uL (130-400); Platelet Morphology Comment Appears Decreased; RBC Distribution Width 17.8 % (11.5-14.5); Red Blood Cell (RBC) Count 2.82 mill/uL (4.20-5.40); White Blood Cell (WBC) Count 1.9 thou/uL (4.8-10.8)
[2019-02-15] MEDS: Saccharomyces boulardii 250 MG CAP PO SCH (08:27)
[2019-02-15] MEDS: Carvedilol 3.125 MG TAB PO SCH ×2 (08:27→16:25)
[2019-02-15] MEDS ORDERED: Iopamidol 300 61% 30 ML VIAL ONE (10:29)
--- NOTE | 2019-02-15 11:20 | PDOC.MOPN ---
Interval History: Nausea and "felt sick" last night. Less blood in colostomy. - Vital Signs Vital Signs: Vital Signs (12 hours) Temp Pulse Resp BP Pulse Ox 02/15/19 07:11 98.0 F 73 18 182/95 H 94 L 02/15/19 04:00 98.0 F 73 18 176/83 H 92 L 02/14/19 23:42 97.9 F 72 18 163/82 H 95 Weight Admit Weight 121 lb 3 oz Weight 124 lb 6 oz - Physical Exam General: Alert, Oriented x3, No acute distress HEENT: Atraumatic, PERRLA, EOMI, Mucous membr. moist/pink Lungs: Clear to auscultation, Normal air movement Cardiovascular: Regular rate, Normal S1, Normal S2, No murmurs, Gallops, Rubs Abdomen: Other Extremities: No clubbing, No cyanosis, No edema, Normal pulses, No tenderness/ swelling Skin: No rashes, No breakdown, No significant lesion Psych/Mental Status: Mental status NL, Mood NL - Labs Result Diagrams: 02/15/19 05:15 02/15/19 05:15 Lab results: Laboratory Results - last 24 hr 02/15/19 10:16: Blood Type O POSITIVE, Antibody Screen NEGATIVE 02/15/19 05:15: WBC 1.9 L, RBC 2.82 L, Hgb 8.2 L, Hct 24.1 L, MCV 85.5, MCH 29.2 , MCHC 34.1, RDW 17.8 H, Plt Count 24 L*, MPV 14.3 H, Neutrophils % (Manual) 52 , Band Neuts % (Manual) 2 L, Lymphocytes % (Manual) 42, Monocytes % (Manual) 2, Eosinophils % (Manual) 2, Plt Morphology Comment Appears Decreased L, Anisocytosis MODERATE=16-30 cells H 02/15/19 05:15: Sodium 135 L, Potassium 4.1, Chloride 110 H, Carbon Dioxide 19 L , Anion Gap 10, BUN 34 H, Creatinine 1.07, Estimated GFR (MDRD) 50, Glucose 87, Calcium 7.8, Magnesium 1.8, Total Bilirubin 0.4, AST 24, ALT 11, Alkaline Phosphatase 88, Serum Total Protein 5.0 L, Albumin 2.8 L, Globulin 2.2 L, Albumin/Globulin Ratio 1.3 Status: lab reviewed by me A/P - Problem (1) Ovarian ca Current Visit: Yes Status: Acute (2) Anemia Current Visit: Yes Code(s): D64.9 - ANEMIA, UNSPECIFIED Status: Acute (3) Thrombocytopenia Current Visit: Yes Code(s): D69.6 - THROMBOCYTOPENIA, UNSPECIFIED Status: Acute - Plan Plan: 1. transfuse platelets today 2. CBC in am 3. Likely hold chemo next week.
[2019-02-15] MEDS: NS 0.9% w/ 20 MEQ KCL 1,000 ML/1,000 ML BAG IV SCH ×2 (12:15→21:09)
--- NOTE | 2019-02-15 15:39 | RAD ---
MEDIPORT EVALUATION: INDICATION: Port malfunction. FINDINGS: The patient presents with an indwelling MediPort catheter through the right jugular. The line was flushed. Iodinated contrast was then attached and injected under fluoroscopic observati on. There is normal function. Contrast flows into the superior vena cava. There is no evidence of extravasation. IMPRESSION: Normal functioning MediPort catheter. POS: [facility]
[2019-02-15] MEDS: cefTRIAXone\\ROCEPHIN 1 GM in Sodium Chloride 0.9% 100 ML IVPB SCH (16:08)
[2019-02-15] MEDS: cloNIDine 0.1 MG TAB PO PRN (18:30)
--- NOTE | 2019-02-15 23:20 | PDOC.HOSPP ---
- Subjective Encounter Date: 02/15/19 Encounter Time: 18:30 Subjective: Patient seen and examined for gen weakness/UTI/Pancytopenia. Feels the same. Some nausea +. No new complaints. No overnight events - Objective Vital Signs & Weight: Vital Signs (12 hours) Temp Pulse Pulse Resp BP BP BP 02/15/19 21:00 02/15/19 20:59 02/15/19 20:00 98.0 F 84 18 169/87 H 02/15/19 18:30 197/93 H 02/15/19 17:57 97.7 F 79 16 196/96 H 02/15/19 17:47 97.9 F 77 16 183/94 H Pulse Ox 02/15/19 21:00 94 L 02/15/19 20:59 93 L 02/15/19 20:00 88 L 02/15/19 18:30 02/15/19 17:57 02/15/19 17:47 Weight Admit Weight 121 lb 3 oz Weight 124 lb 6 oz I&O: 02/14/19 02/15/19 02/16/19 06:59 06:59 06:59 Intake Total 2290 1750 730 Output Total 105 Balance 2290 1645 730 Result Diagrams: 02/15/19 05:15 02/15/19 05:15 Hospitalist ROS - Review of Systems Cardiovascular: denies: chest pain, palpitations, orthopnea, paroxysmal noc. dyspnea, edema, light headedness, other Gastrointestinal: reports: nausea. denies: vomiting, abdominal pain, diarrhea, constipation, melena, hematochezia, other - Medication Medications: Active Medications Generic Name Dose Route Start Last Admin Trade Name Freq PRN Reason Stop Dose Admin Carvedilol 3.125 mg 02/12/19 17:00 02/15/19 16:25 Coreg PO 3.125 mg BID-WM MAXIMILIANO Administration Clonidine 0.1 mg 02/12/19 10:15 02/15/19 18:30 Catapres PO 0.1 mg Q4H PRN Administration SBP Greater Than 180 Ceftriaxone Sodium 1 gm/ 100 mls @ 200 mls/hr 02/12/19 15:00 02/15/19 16:08 Sodium Chloride IVPB 100 mls 1500 MAXIMILIANO Administration Potassium Chloride/Sodium Chloride 1,000 ml in 1,000 mls @ 50 mls/hr 02/13/19 19:48 02/15/19 21:09 Ns 0.9% W/ 20 Meq Kcl IV 1,000 mls .Q20H MAXIMILIANO Administration Ondansetron HCl 4 mg 02/14/19 17:37 02/15/19 21:12 Zofran IVP 4 mg Q4H PRN Administration Nausea/Vomiting Pantoprazole Sodium 40 mg 02/14/19 21:00 02/15/19 21:08 Protonix PO 40 mg HS MAXIMILIANO Administration Saccharomyces Boulardii 250 mg 02/13/19 09:00 02/15/19 08:27 Florastor PO 250 mg DAILY MAXIMILIANO Administration - Exam General Appearance: NAD Neck: supple, no JVD Heart: RRR, no gallops Respiratory: CTAB, no rales Gastrointestinal: soft, non-distended Extremities: no edema Hosp A/P - Plan Gen weakness N/V LGI bleeding - no new episodes Sepsis due to E coli UTI Acute blood loss anemia s/p 1 unit PRBC Thrombocytopenia/Pancytopenia due to chemo CHARLA on CKD 3 Hypokalemia Metabolic acidosis HTN Ovarian CA on chemo PLAN: Transfuse 1 pack platelets Cont neutropenic precautions Cont IV Ceftriaxone Increase Coreg dose Add Amlodipine DC IVF in AM Cont other meds as above AM labs
[2019-02-16] MEDS: cloNIDine 0.1 MG TAB PO PRN ×2 (05:18→09:21)
[2019-02-16] MEDS ORDERED: Amlodipine 5 MG TAB PO SCH (09:00)
[2019-02-16] MEDS: Ondansetron PF 4 MG/2 ML Vial IVP PRN (09:12)
[2019-02-16] MEDS: Carvedilol 6.25 MG TAB PO SCH ×2 (09:21→16:07)
[2019-02-16] MEDS: Saccharomyces boulardii 250 MG CAP PO SCH (09:23)
[2019-02-16] MEDS ORDERED: NIFEdipine XL 30 MG TAB PO SCH (10:00)
[2019-02-16 10:48] LABS: Anisocytosis SLIGHT = 6-15 cells (100X) (0-5/hpf); Hemoglobin 9.3 g/dL (12.0-16.0); Lymphocytes 24 % (21-51); MDiff Complete? YES; Mean Corpuscular HGB CONC 33.5 g/dL (32.0-36.0); Mean Corpuscular Hemoglobin 29.2 pg (27.0-31.0); Mean Platelet Volume 11.3 fL (7.4-10.4); Monocytes 9 % (0-10); Neutrophil 67 % (42-75); Platelet Count 68 thou/uL (130-400); Platelet Morphology Comment Appears Decreased; Poikilocytosis SLIGHT = 6-15 cells (100X) (0-5/hpf); RBC Distribution Width 17.9 % (11.5-14.5); Red Blood Cell (RBC) Count 3.17 mill/uL (4.20-5.40); White Blood Cell (WBC) Count 2.9 thou/uL (4.8-10.8)
[2019-02-16] MEDS: Acetaminophen 325 MG TAB PO PRN ×2 (12:07→16:07)
[2019-02-16] MEDS: cefTRIAXone\\ROCEPHIN 1 GM in Sodium Chloride 0.9% 100 ML IVPB SCH (15:02)
--- NOTE | 2019-02-16 16:01 | PDOC.MOPN ---
Interval History: Feeling better. no nausea. no blood in colostomy - Vital Signs Vital Signs: Vital Signs (12 hours) Temp Pulse Resp BP BP Pulse Ox 02/16/19 10:57 97.6 F 65 16 156/79 H 95 02/16/19 10:38 74 146/77 H 02/16/19 09:22 74 211/106 H 02/16/19 09:21 211/106 H 02/16/19 07:10 97.8 F 74 18 185/100 H 93 L 02/16/19 04:54 97.9 F 78 17 191/93 H 94 L Weight Admit Weight 121 lb 3 oz Weight 125 lb 15.131 oz - Physical Exam General: Alert, Oriented x3, No acute distress HEENT: Atraumatic, PERRLA, EOMI, Mucous membr. moist/pink Lungs: Clear to auscultation, Normal air movement Cardiovascular: Regular rate Extremities: No clubbing Skin: No rashes Neurological: Normal speech Psych/Mental Status: Mental status NL - Labs Result Diagrams: 02/16/19 09:58 02/15/19 05:15 Lab results: Laboratory Results - last 24 hr 02/16/19 09:58: WBC 2.9 L, RBC 3.17 L, Hgb 9.3 L, Hct 27.6 L, MCV 87.0, MCH 29.2 , MCHC 33.5, RDW 17.9 H, Plt Count 68 L, MPV 11.3 H, Neutrophils % (Manual) 67, Lymphocytes % (Manual) 24, Monocytes % (Manual) 9, Plt Morphology Comment Appears Decreased L, Poikilocytosis SLIGHT = 6-15 cells, Anisocytosis SLIGHT = 6 -15 cells 02/15/19 10:16: Blood Type O POSITIVE, Antibody Screen NEGATIVE 02/11/19 17:12: Crossmatch See Detail Status: lab reviewed by me A/P - Problem (1) Ovarian ca Current Visit: Yes Status: Acute (2) Anemia Current Visit: Yes Code(s): D64.9 - ANEMIA, UNSPECIFIED Status: Acute (3) Thrombocytopenia Current Visit: Yes Code(s): D69.6 - THROMBOCYTOPENIA, UNSPECIFIED Status: Acute - Plan Plan: Counts improved. no bleeding Ok to dc home in am follow-up Tuesday at Clinic
--- NOTE | 2019-02-17 00:38 | PDOC.HOSPP ---
- Subjective Encounter Date: 02/16/19 Encounter Time: 10:30 Subjective: Patient seen and examined for Gen weakness/Anemia. Feels better. No new GI bleeding. No new complaints. No overnight events - Objective Vital Signs & Weight: Vital Signs (12 hours) Temp Pulse Resp BP BP Pulse Ox 02/16/19 22:11 94 L 02/16/19 20:00 97.9 F 69 18 116/63 94 L 02/16/19 16:07 156/79 H 02/16/19 16:00 98.0 F 70 18 136/78 92 L Weight Admit Weight 121 lb 3 oz Weight 125 lb 15.131 oz I&O: 02/15/19 02/16/19 02/17/19 06:59 06:59 06:59 Intake Total 1750 1580 Output Total 105 30 Balance 1645 1550 Result Diagrams: 02/16/19 09:58 02/15/19 05:15 Hospitalist ROS - Review of Systems Respiratory: denies: cough, dry, shortness of breath, hemoptysis, SOB with excertion, pleuritic pain, sputum, wheezing, other Cardiovascular: denies: chest pain, palpitations, orthopnea, paroxysmal noc. dyspnea, edema, light headedness, other Gastrointestinal: denies: nausea, vomiting, abdominal pain, diarrhea, constipation, melena, hematochezia, other - Medication Medications: Active Medications Generic Name Dose Route Start Last Admin Trade Name Freq PRN Reason Stop Dose Admin Acetaminophen 650 mg 02/11/19 15:54 02/16/19 16:07 Tylenol PO 650 mg Q4H PRN Administration Headache/Fever/Mild Pain (1-3) Carvedilol 6.25 mg 02/16/19 08:00 02/16/19 16:07 Coreg PO 6.25 mg BID-WM MAXIMILIANO Administration Clonidine 0.1 mg 02/12/19 10:15 02/16/19 09:21 Catapres PO 0.1 mg Q4H PRN Administration SBP Greater Than 180 Ceftriaxone Sodium 1 gm/ 100 mls @ 200 mls/hr 02/12/19 15:00 02/16/19 15:02 Sodium Chloride IVPB 100 mls 1500 MAXIMILIANO Administration Ondansetron HCl 4 mg 02/14/19 17:37 02/16/19 09:12 Zofran IVP 4 mg Q4H PRN Administration Nausea/Vomiting Pantoprazole Sodium 40 mg 02/14/19 21:00 02/16/19 19:44 Protonix PO 40 mg HS MAXIMILIANO Administration Saccharomyces Boulardii 250 mg 02/13/19 09:00 02/16/19 09:23 Florastor PO 250 mg DAILY MAXIMILIANO Administration - Exam General Appearance: NAD Neck: supple, no JVD Heart: RRR, no gallops Respiratory: CTAB, no rales Hosp A/P - Plan DVT proph w/SCDs Gen weakness N/V - improving LGI bleeding - no new episodes Sepsis due to E coli UTI - on IV Ceftriaxone Acute blood loss anemia s/p 1 unit PRBC Thrombocytopenia/Pancytopenia due to chemo s/p platelet transfusion CHARAL on CKD 3 Hypokalemia Metabolic acidosis HTN Ovarian CA on chemo PLAN: Cont Coreg Cont Procardia XL Cont other meds as above DC once cleared by Oncology
[2019-02-17] MEDS ORDERED: Carvedilol 3.125 MG TAB PO SCH (08:00)
[2019-02-17] MEDS: Saccharomyces boulardii 250 MG CAP PO SCH (08:35)
[2019-02-17] MEDS: Ondansetron PF 4 MG/2 ML Vial IVP PRN (08:49)
[2019-02-17] MEDS ORDERED: NIFEdipine XL 30 MG TAB PO SCH (09:00)
[2019-02-17 11:16] VITALS: TEMP 97.8
[2019-02-17] MEDS ORDERED: Nitrofurantoin Monohyd/M-Cryst 100 MG CAP PO SCH (12:00)
[2019-02-17] MEDS: cloNIDine 0.1 MG TAB PO PRN (12:33)
[2019-02-17] MEDS: Acetaminophen 325 MG TAB PO PRN (13:05)
[2019-02-17 14:48] VITALS: BP 134/75
--- NOTE | 2019-02-17 21:42 | DIS ---
DATE OF ADMISSION: 02/11/2019 DATE OF DISCHARGE: 02/17/2019 PRIMARY CARE PROVIDER: Foreign Green MD DISCHARGE DIAGNOSES: 1. Sepsis. 2. Sepsis secondary to urinary tract infection. 3. Escherichia coli urinary tract infection. 4. Hyponatremia. 5. Hypokalemia. 6. Acute kidney injury. 7. Thrombocytopenia. 8. Hypertensive urgency. CONDITION OF PATIENT ON THE DAY OF DISCHARGE: Stable. I assessed Ms. Hong on the day of discharge. She denies any chest pain or shortness of breath. Vital signs are stable. S1 and S2 are heard, regular. Lungs are clear to auscultation bilaterally. CONSULTATIONS DURING THIS HOSPITALIZATION: 1. Gastroenterology, Dr. Hodge. 2. Medical Oncology, Ms. Vidales. HOSPITAL COURSE: Ms. Hong is a pleasant 78-year-old lady, who was admitted to [facility] on February 11, 2019, for sepsis secondary to urinary tract infection and acute kidney injury. Please refer to Ms. Johnston's history and physical note dated February 11, 2019, for further details. She was seen by Gastroenterology Service for bleeding into her ostomy bag. This was in the context of thrombocytopenia, most likely secondary to her chemotherapeutic agents. She was also seen by Medical Oncology Service. She received packed RBC and platelet transfusions. She improved clinically. She also received intravenous antibiotics. She received intravenous fluids, with resolution of acute kidney injury. Urine cultures grew Escherichia coli that was resistant to ampicillin, cefoxitin, and ampicillin/sulbactam, sensitive to amikacin, cefepime, ceftazidime, ceftriaxone, ciprofloxacin, gentamicin, levofloxacin, meropenem, nitrofurantoin, Zosyn, Bactrim, and tobramycin. She also had elevated blood pressures during this hospitalization and has been started on carvedilol and Cardizem. DISCHARGE MEDICATIONS: 1. Omeprazole 20 mg daily. 2. Potassium chloride 20 mEq daily. 3. Coreg 3.125 mg 2 times a day. 4. Procardia 30 mg daily. 5. Macrobid 100 mg 2 times a day. 6. Florastor 250 mg daily. 7. Zofran p.r.n. FOLLOWUP APPOINTMENTS: The patient is advised to follow up with primary care provider in 3 to 5 days time. Many thanks for allowing me to participate in your patient's care. Please feel free to contact me with any questions or concerns. DISCHARGE DESTINATION: Home. TIME SPENT: Total amount of time spent coordinating this discharge: 32 minutes. Job ID: [id number]
--- NOTE | 2019-02-20 05:10 | PQF ---
[employer] Clerk Crystal Reports Winform ViewerCITLALI MARSH DAVID [id number] [facility] [id number] CLINICAL DOCUMENTATION CLARIFICATION FORM: POST DISCHARGE Addendum to original discharge summary date: ____ Late entry note date: __ DATE: 02/20/19 ATTN: Dr. Grady Diaz Please exercise your independent, professional judgment in responding to the clarification form. Clinical indicators are provided on the bottom of this form for your review Can you please further specify the diagnosis based on the clinical indicators below? Please check appropriate box(s): [ ] Bleeding due to post op complication of colostomy [ x ] Bleeding not due to post op complication of colostomy [ ] Other diagnosis please specify [ ] Unable to determine In addition, please specify: Present on Admission (POA): [ ] Yes [ ] No [ ] Unable to determine CLINICAL INDICATORS - SIGNS / SYMPTOMS / LABS H and P pg.1- Patient found to be anemic with hemogrlobin of 7.3, hematocrit 20.[address] Diaz 02/11 pg.1- Blleding per colostomy, resolved Hospitalist PN 02/12 Dr. Gutierrez pg.1- Develop blood in colostomy baf this AM Consult 02/12 Dr. Hodge pg.2-3- The patient has new blood in her ostomy bag in the context of new thrombocytopenia, possibly secondary to myelosuppresion from chemotherapeutic agent RISK FACTORS CHARLA- H and P pg.2 Hx of Colostomy- H and P pg.2 Acute blood loss anemia-Hospitalist PN 02/12 Dr. Gutierrez pg.3 LGI bleeding- -Hospitalist PN 02/12 Dr. Gutierrez pg.3 TREATMENT: Blood transfusion IV Fluids- MAR 02/11 H and H monitoring- Laboratory- 02/08 GI consult- Dr. Hodge 02/12 [employer] Crystal Reports Winform CITLALI Lea DAVID [id number] [facility]- 4422 [id number] CLINICAL DOCUMENTATION CLARIFICATION FORM: POST DISCHARGE Addendum to original discharge summary date: ____ Late entry note date: __ DATE: 02/20/19 ATTN: Dr. Grady Diaz Please exercise your independent, professional judgment in responding to the clarification form. Clinical indicators are provided on the bottom of this form for your review Can you please further specify the diagnosis based on the clinical indicators below? Please check appropriate box(s): [ ] Bleeding due to post op complication of colostomy [ ] Bleeding not due to post op complication of colostomy [ ] Other diagnosis please specify [ ] Unable to determine In addition, please specify: Present on Admission (POA): [ ] Yes [ ] No [ ] Unable to determine CLINICAL INDICATORS - SIGNS / SYMPTOMS / LABS H and P pg.1- Patient found to be anemic with hemoglobin of 7.3, hematocrit 20.[address] Diaz 02/11 pg.1- Bleeding per colostomy, resolved Hospitalist PN 02/12 Dr. Joshua- pg.1- Develop blood in colostomy bag this AM Consult 02/12 Dr. Hodge pg.2-3- The patient has new blood in her ostomy bag in the context of new thrombocytopenia, possibly secondary to myelosuppression from chemotherapeutic agent RISK FACTORS CHARLA- H and P pg.2 Hx of Colostomy- H and P pg.2 Acute blood loss anemia-Hospitalist PN 02/12 Dr. Gutierrez pg.3 LGI bleeding- -Hospitalist PN 02/12 Dr. Gutierrez pg.3 TREATMENT: Blood transfusion IV Fluids- JUL 22 H and H monitoring- Laboratory- 02/08 GI consult- Dr. Hodge 02/12 (This form is maintained as a part of the permanent medical record) 2014 [employer]. All Rights Reserved Adolph [email or web address] [not provided] [email or web address]
== END 2019-02-17 14:35 | disposition home or self-care (01) | DRG 871 ==
LOC: ERS 11:42 → T4-B 15:54
PROVIDERS: ADMIT Internal Medicine; ATTEND Internal Medicine
PROC: 30233N1 Transfusion of Nonautologous Red Blood Cells into Peripheral Vein, Percutaneous Approach (ICD-10-PCS; 2019-02-11)
PROC: 30233R1 Transfusion of Nonautologous Platelets into Peripheral Vein, Percutaneous Approach (ICD-10-PCS; principal; 2019-02-13)
DX: A41.9 Sepsis, unspecified organism (principal); D61.810 Antineoplastic chemotherapy induced pancytopenia; C56.9 Malignant neoplasm of unspecified ovary; N17.9 Acute kidney failure, unspecified; D62 Acute posthemorrhagic anemia; N39.0 Urinary tract infection, site not specified; E87.1 Hypo-osmolality and hyponatremia; E87.2 Acidosis; Z16.24 Resistance to multiple antibiotics; E86.0 Dehydration; K21.9 Gastro-esophageal reflux disease without esophagitis; E87.6 Hypokalemia; N18.3 Chronic kidney disease, stage 3 (moderate); I12.9 Hypertensive chronic kidney disease with stage 1 through stage 4 chronic kidney disease, or unspecified chronic kidney disease; J44.9 Chronic obstructive pulmonary disease, unspecified; M19.90 Unspecified osteoarthritis, unspecified site; D63.0 Anemia in neoplastic disease; T45.1X5A Adverse effect of antineoplastic and immunosuppressive drugs, initial encounter; B96.20 Unspecified Escherichia coli [E. coli] as the cause of diseases classified elsewhere; I16.0 Hypertensive urgency; Z90.49 Acquired absence of other specified parts of digestive tract; Z86.73 Personal history of transient ischemic attack (TIA), and cerebral infarction without residual deficits; Z90.710 Acquired absence of both cervix and uterus; Z93.3 Colostomy status; Z87.891 Personal history of nicotine dependence; Z88.5 Allergy status to narcotic agent; Z88.0 Allergy status to penicillin; Z79.82 Long term (current) use of aspirin; Z79.899 Other long term (current) drug therapy
CPT/HCPCS: 36415; 36430; 36598; 51701; 76770; 80053; 81003; 81015; 82274; 82728; 83540; 83550; 83605; 83690; 83735; 85007; 85025; 85027; 85610; 85730; 86850; 86900; 86901; 87040; 87077; 87086; 87186; 96361; 96365; 96375; A4353; J0696; J1642; J2405; J3475; J3480; J3490; J7050; P9016; P9035; Q9967

== ENCOUNTER 2019-02-19 11:56 | Day surgery (SDC) | payer MEDICARE ==
[~2019-02-19 11:56] MED LIST changes: +Bevacizumab 350 MG in Sodium Chloride 0.9% 86 ML IVPB SCH; +CARBOplatin 300 MG in Sodium Chloride 0.9% 250 ML 250 ML IVPB SCH
[2019-02-19 12:21] VITALS: TEMP 97.7
[2019-02-19] MEDS ORDERED: CARBOplatin 250 MG in Sodium Chloride 0.9% 250 ML 250 ML IVPB SCH (14:30)
[2019-02-19] MEDS ORDERED: Amlodipine 5 MG TAB PO SCH (14:30)
[2019-02-19] MEDS ORDERED: Amlodipine 5 MG TAB PO PRN (15:55)
[2019-02-19] MEDS ORDERED: Sodium Chloride 0.9% 20 ML ONE (16:08)
[2019-02-19] MEDS ORDERED: NIFEdipine XL 30 MG TAB PO SCH (17:15)
[2019-02-19 18:48] VITALS: BP 191/106
== END 2019-02-19 18:59 | disposition home or self-care (01) ==
LOC: ONC/OP 11:56
PROVIDERS: ATTEND Internal Medicine Hematology & Oncology
DX: Z51.11 Encounter for antineoplastic chemotherapy (principal); C48.8 Malignant neoplasm of overlapping sites of retroperitoneum and peritoneum; R97.1 Elevated cancer antigen 125 [CA 125]; Z88.0 Allergy status to penicillin; Z88.5 Allergy status to narcotic agent
CPT/HCPCS: 80053; 82248; 83615; 84100; 84550; 86304; 96367; 96375; 96413; 96417; 99212; G0463; J1100; J1453; J1642; J2469; J3490; J7050; J9035; J9045; J9201

== ENCOUNTER 2019-02-27 08:08 | Day surgery (SDC) | payer MEDICARE ==
[2019-02-27] MEDS ORDERED: Sodium Chloride 0.9% 20 ML ONE (08:55)
[2019-02-27] MEDS ORDERED: Acetaminophen 500 MG TAB PO SCH (09:00)
[2019-02-27] MEDS ORDERED: diphenhydrAMINE 25 MG CAP PO SCH (09:00)
[2019-02-27 15:09] VITALS: TEMP 98.5
[2019-02-27 16:03] VITALS: BP 169/84
== END 2019-02-27 16:49 | disposition home or self-care (01) ==
LOC: ONC/OP 08:08
PROVIDERS: ATTEND Internal Medicine Hematology & Oncology
PROC: 30233N1 Transfusion of Nonautologous Red Blood Cells into Peripheral Vein, Percutaneous Approach (ICD-10-PCS; principal; 2019-02-27)
DX: D64.9 Anemia, unspecified (principal); D69.6 Thrombocytopenia, unspecified
CPT/HCPCS: 36430; 86850; 86900; 86901; J1642; P9016; Q0163

== ENCOUNTER 2019-03-14 11:47 | Day surgery (SDC) | payer MEDICARE ==
[~2019-03-14 11:47] MED LIST changes: +CARBOplatin 250 MG in Sodium Chloride 0.9% 250 ML 250 ML IVPB SCH; -CARBOplatin 300 MG in Sodium Chloride 0.9% 250 ML 250 ML IVPB SCH
[2019-03-14] MEDS ORDERED: Sodium Chloride 0.9% 500 ML IVPB SCH (14:15)
[2019-03-14] MEDS ORDERED: Sodium Chloride 0.9% 20 ML ONE (15:31)
== END 2019-03-14 15:44 | disposition home or self-care (01) ==
LOC: ONC/OP 11:47
PROVIDERS: ATTEND Internal Medicine Hematology & Oncology
DX: Z51.11 Encounter for antineoplastic chemotherapy (principal); C48.8 Malignant neoplasm of overlapping sites of retroperitoneum and peritoneum; Z88.0 Allergy status to penicillin; Z88.5 Allergy status to narcotic agent
CPT/HCPCS: 36415; 80053; 82248; 83615; 84100; 84550; 86304; 96361; 96367; 96375; 96413; 96417; 99212; G0463; J1100; J1453; J1642; J2469; J3490; J7050; J9035; J9045; J9201